=== PATIENT | male | born 1960 | race Caucasian/White ===

== ENCOUNTER 2018-04-09 21:01 | Inpatient (IN) | payer OTHER ==
--- NOTE | 2018-04-09 21:43 | EDPHYS ---
Physician Documentation [facility] Name: Olga Gates Age: 57 yrs Sex: Male : 1960 Arrival Date: 04/09/2018 Time: 21:02 Bed 16 Private MD: ED Physician Bennie Wu HPI: 04/09 21:27 This 57 yrs old Male presents to ER via Ambulatory with complaints of Chest michael Pain, High Blood Pressure. 21:27 This 57 yrs old Male presents to ER via Ambulatory with complaints of Chest michael Pain, High Blood Pressure. 21:27 This 57 yrs old Male presents to ER via Ambulatory with complaints of Chest michael Pain, High Blood Pressure. 21:27 Onset: 1 day(s) ago. michael Historical: - Allergies: 21:20 Sulfa (Sulfonamide Antibiotics); bb 21:23 PENICILLINS; bb - Home Meds: 21:23 losartan oral oral [Active]; Metformin Oral [Active]; Glipizide Oral [Active]; bb Omeprazole Oral [Active]; Hydrochlorothiazide Oral [Active]; aspirin 81 mg Oral chew 1 tab once daily [Active]; atorvastatin oral oral [Active]; - PMHx: 21:23 Diabetes - NIDDM; Hypertension; GERD; High Cholesterol; bb - Immunization history:: Adult Immunizations unknown. - Ebola Screening: : No symptoms or risks identified at this time. - Social history:: Smoking status: Patient uses tobacco products, smokes one-half pack cigarettes per day, Patient/guardian denies using alcohol, street drugs. ROS: 21:41 Constitutional: Negative for fever, chills, and weight loss, Eyes: Negative for injury, michael pain, redness, and discharge, ENT: Negative for injury, pain, and discharge, Neck: Negative for injury, pain, and swelling, Respiratory: Negative for shortness of breath, cough, wheezing, and pleuritic chest pain, Abdomen/GI: Negative for abdominal pain, nausea, vomiting, diarrhea, and constipation, Back: Negative for injury and pain, : Negative for injury, bleeding, discharge, and swelling, MS/Extremity: Negative for injury and deformity, Skin: Negative for injury, rash, and discoloration, Neuro: Negative for headache, weakness, numbness, tingling, and seizure, Psych: Negative for depression, anxiety, suicide ideation, homicidal ideation, and hallucinations, Allergy/Immunology: Negative for hives, rash, and allergies, Endocrine: Negative for neck swelling, polydipsia, polyuria, polyphagia, and marked weight changes, Hematologic/Lymphatic: Negative for swollen nodes, abnormal bleeding, and unusual bruising. 21:41 Cardiovascular: Positive for chest pain. Exam: 21:41 Constitutional: This is a well developed, well nourished patient who is awake, alert, michael and in no acute distress. Head/Face: Normocephalic, atraumatic. Eyes: Pupils equal round and reactive to light, extra-ocular motions intact. Lids and lashes normal. Conjunctiva and sclera are non-icteric and not injected. Cornea within normal limits. Periorbital areas with no swelling, redness, or edema. ENT: Nares patent. No nasal discharge, no septal abnormalities noted. Tympanic membranes are normal and external auditory canals are clear. Oropharynx with no redness, swelling, or masses, exudates, or evidence of obstruction, uvula midline. Mucous membranes moist. Neck: Trachea midline, no thyromegaly or masses palpated, and no cervical lymphadenopathy. Supple, full range of motion without nuchal rigidity, or vertebral point tenderness. No Meningismus. Chest/axilla: Normal chest wall appearance and motion. Nontender with no deformity. No lesions are appreciated. Cardiovascular: Regular rate and rhythm with a normal S1 and S2. No gallops, murmurs, or rubs. Normal PMI, no JVD. No pulse deficits. Respiratory: Lungs have equal breath sounds bilaterally, clear to auscultation and percussion. No rales, rhonchi or wheezes noted. No increased work of breathing, no retractions or nasal flaring. Abdomen/GI: Soft, non-tender, with normal bowel sounds. No distension or tympany. No guarding or rebound. No evidence of tenderness throughout. Back: No spinal tenderness. No costovertebral tenderness. Full range of motion. Male : Normal genitalia with no discharge or lesions. Skin: Warm, dry with normal turgor. Normal color with no rashes, no lesions, and no evidence of cellulitis. MS/ Extremity: Pulses equal, no cyanosis. Neurovascular intact. Full, normal range of motion. Neuro: Awake and alert, GCS 15, oriented to person, place, time, and situation. Cranial nerves II-XII grossly intact. Motor strength 5/5 in all extremities. Sensory grossly intact. Cerebellar exam normal. Normal gait. Psych: Awake, alert, with orientation to person, place and time. Behavior, mood, and affect are within normal limits. Vital Signs: 21:23 BP 201 / 111; Pulse 90; Resp 18 S; Temp 98.6(O); Pulse Ox 98% on R/A; Weight 99.79 kg bb (R); Height 5 ft. 10 in. (177.80 cm) (R); Pain 8/10; 22:22 BP 170 / 101; Pulse 83; Resp 18; Pulse Ox 98% on R/A; Pain 8/10; mg2 22:49 BP 169 / 79; Pulse 82; Resp 18; Pulse Ox 98% on R/A; Pain 4/10; mg2 23:20 BP 133 / 70; Pulse 78; Resp 18; Pulse Ox 100% on R/A; Pain 0/10; mg2 06 00:45 BP 128 / 81; Pulse 78; Resp 18; Pulse Ox 100% on R/A; Pain 0/10; mg2 04/09 21:23 Body Mass Index 31.57 (99.79 kg, 177.80 cm) bb MDM: 04/09 21:21 Patient medically screened. [facility] 21:42 Data reviewed: vital signs, nurses notes, lab test result(s), EKG, radiologic studies, [facility] CT scan, plain films. 04/09 21:25 Order name: Basic Metabolic Panel; Complete Time: 23:17 [facility] 04/09 21:25 Order name: BNP; Complete Time: 23:17 [facility] 04/09 21:25 Order name: CBC with Diff; Complete Time: 23:17 [facility] 04/09 21:25 Order name: Ckmb; Complete Time: 23:17 [facility] 04/09 21:25 Order name: CPK; Complete Time: 23:17 [facility] 04/09 21:25 Order name: LFT's; Complete Time: 23:17 [facility] 04/09 21:25 Order name: Magnesium; Complete Time: 23:17 [facility] 04/09 21:25 Order name: PT-INR; Complete Time: 23:17 [facility] 04/09 21:25 Order name: Ptt, Activated; Complete Time: 23:17 [facility] 04/09 21:25 Order name: Troponin (emerg Dept Use Only); Complete Time: 23:17 [facility] 04/09 21:25 Order name: Lipase; Complete Time: 23:17 [facility] 04/09 21:25 Order name: Urine Culture [facility] 04/09 22:13 Order name: Urine Dipstick--Ancillary (enter results) 04/09 23:02 Order name: Urine Dipstick-Ancillary; Complete Time: 23:17 [facility] 04/09 21:25 Order name: XRAY Chest (1 view) [facility] 04/09 21:25 Order name: EKG; Complete Time: 21:26 [facility] 04/09 21:39 Order name: CT Aorta for Dissection [facility] 04/09 21:47 Order name: CONS Physician Consult [facility] 04/09 21:48 Order name: Echo with Doppler [facility] 04/09 21:25 Order name: Cardiac monitoring; Complete Time: 21:50 [facility] 04/09 21:25 Order name: EKG - Nurse/Tech; Complete Time: 21:26 [facility] 04/09 21:25 Order name: IV Saline Lock; Complete Time: 21:50 [facility] 04/09 21:25 Order name: Labs collected and sent; Complete Time: 21:50 [facility] 04/09 21:25 Order name: O2 Per Protocol; Complete Time: 21:26 [facility] 04/09 21:25 Order name: O2 Sat Monitoring; Complete Time: 21:26 [facility] 04/09 21:25 Order name: Urine Dipstick-Ancillary (obtain specimen); Complete Time: 22:09 [facility] Administered Medications: 22:15 Drug: Zofran 4 mg Route: IVP; Site: left forearm; mg2 23:10 Follow up: Response: No adverse reaction; Nausea is decreased mg2 22:16 Drug: hydrALAZINE 10 mg Route: IV; Rate: per protocol; Site: left forearm; mg2 23:08 Follow up: Response: No adverse reaction; Blood pressure is lowered mg2 22:16 Drug: hydrALAZINE 10 mg Route: PO; mg2 23:08 Follow up: Response: No adverse reaction; Blood pressure is lowered mg2 22:16 Drug: morphine 2 mg Route: IVP; Site: left forearm; mg2 23:10 Follow up: Response: No adverse reaction; Pain is decreased mg2 22:17 Drug: NS 0.9% 1000 ml Route: IV; Rate: 125 ml/hr; Site: left forearm; mg2 06/02 01:05 Follow up: IV Status: Infusion continued upon admission mg2 04/09 22:17 Drug: Aspirin 162 mg Route: PO; mg2 23:11 Follow up: Response: No adverse reaction; Pain is decreased mg2 22:17 Drug: Lopressor (metoprolol TARTRATE) 50 mg Route: PO; mg2 23:09 Follow up: Response: No adverse reaction; Blood pressure is lowered mg2 22:48 Drug: morphine 2 mg Route: IVP; Site: left hand; mg2 23:10 Follow up: Response: No adverse reaction; Pain is decreased mg2 23:52 Drug: Potassium Effervescent Tablet 25 mEq Route: PO; mg2 02 01:01 Follow up: Response: No adverse reaction mg2 04/09 23:52 Drug: Magnesium Sulfate 1 grams Route: IVPB; Infused Over: 1 hrs; Site: left hand; mg2 04/10 01:00 Follow up: Response: No adverse reaction; IV Status: Completed infusion mg2 00:18 Drug: Lovenox 1 mg/kg Route: Sub-Q; Site: left lower abdomen; mg2 01:01 Follow up: Response: No adverse reaction mg2 00:18 Drug: Lovenox 1 mg/kg Route: Sub-Q; Site: left lower abdomen; mg2 Disposition: 04/09/18 21:43 Hospitalization ordered by Pratibha Zimmer for Observation. Preliminary diagnosis are Chest pain, unspecified, Essential (primary) hypertension, Type 2 diabetes mellitus, Tobacco abuse counseling, Tobacco use, Hypomagnesemia, Hypokalemia. - Bed requested for Telemetry/MedSurg (observation). - Status is Observation. mg2 - Condition is Stable. - Problem is new. - Symptoms have improved. UTI on Admission? No Signatures: Dispatcher [employer] EDSapna Chilel RN RN kl Anderson, Corey, MD MD cha Ballard, Brenda, RN RN bb Gardose, Michele, RN RN mg2 Corrections: (The following items were deleted from the chart) 04/09 21:23 21:20 Allergies: PENICILLINS; chris perez 23:18 21:43 Hospitalization Ordered by Pratibha Zimmer MD for Observation. Preliminary michael diagnosis is Chest pain, unspecified; Essential (primary) hypertension; Type 2 diabetes mellitus; Tobacco abuse counseling; Tobacco use. Bed requested for Telemetry/MedSurg (observation). Status is Observation. Condition is Stable. Problem is new. Symptoms have improved. UTI on Admission? No. michael 04/10 00:31 04/09 23:18 04/09/2018 21:43 Hospitalization Ordered by Pratibha Zimmer MD for kl Observation. Preliminary diagnosis is Chest pain, unspecified; Essential (primary) hypertension; Type 2 diabetes mellitus; Tobacco abuse counseling; Tobacco use; Hypomagnesemia; Hypokalemia. Bed requested for Telemetry/MedSurg (observation). Status is Observation. Condition is Stable. Problem is new. Symptoms have improved. UTI on Admission? No. michael 04/10 01:06 00:31 04/09/2018 21:43 Hospitalization Ordered by Pratibha Zimmer MD for Observation. mg2 Preliminary diagnosis is Chest pain, unspecified; Essential (primary) hypertension; Type 2 diabetes mellitus; Tobacco abuse counseling; Tobacco use; Hypomagnesemia; Hypokalemia. Bed requested for Telemetry/MedSurg (observation). Status is Observation. Condition is Stable. Problem is new. Symptoms have improved. UTI on Admission? No. kl
--- NOTE | 2018-04-09 21:43 | ER ---
Nurse's Notes [facility] Name: Olga Gates Age: 57 yrs Sex: Male : 1960 Arrival Date: 04/09/2018 Time: 21:02 Bed 16 Private MD: Diagnosis: Chest pain, unspecified;Essential (primary) hypertension;Type 2 diabetes mellitus;Tobacco abuse counseling;Tobacco use;Hypomagnesemia;Hypokalemia Presentation: 04/09 21:18 Presenting complaint: Patient states: pt states he is having chest pain 10 with bb sudden onset tonight denies radiation pt BP at home was 200/121 and he took his losartan and aspirin. Transition of care: patient was not received from another setting of care. Onset of symptoms was April 09, 2018. Risk Assessment: Do you want to hurt yourself or someone else? Patient reports no desire to harm self or others. Initial Sepsis Screen: Does the patient meet any 2 criteria? No. Patient's initial sepsis screen is negative. Does the patient have a suspected source of infection? No. Patient's initial sepsis screen is negative. Care prior to arrival: None. 21:18 Method Of Arrival: Ambulatory bb 21:18 Acuity: LUCAS 2 bb Historical: - Allergies: 21:20 Sulfa (Sulfonamide Antibiotics); bb 21:23 PENICILLINS; bb - Home Meds: 21:23 losartan oral oral [Active]; Metformin Oral [Active]; Glipizide Oral [Active]; bb Omeprazole Oral [Active]; Hydrochlorothiazide Oral [Active]; aspirin 81 mg Oral chew 1 tab once daily [Active]; atorvastatin oral oral [Active]; - PMHx: 21:23 Diabetes - NIDDM; Hypertension; GERD; High Cholesterol; bb - Immunization history:: Adult Immunizations unknown. - Ebola Screening: : No symptoms or risks identified at this time. - Social history:: Smoking status: Patient uses tobacco products, smokes one-half pack cigarettes per day, Patient/guardian denies using alcohol, street drugs. Screenin:18 Abuse screen: Denies threats or abuse. Denies injuries from another. Nutritional mg2 screening: No deficits noted. Tuberculosis screening: No symptoms or risk factors identified. Fall Risk IV access (20 points). Assessment: 22:01 General: Appears in no apparent distress. comfortable, Behavior is calm, cooperative. mg2 Pain: Pain: Complains of pain in chest Pain radiates to both arms Pain currently is 8 out of 10 on a pain scale. Quality of pain is described as aching, Pain began gradually, 1 and 1/2 hour ago Is intermittent, Aggravated by increased activity, heat. 22:19 Neuro: Level of Consciousness is awake, alert, Oriented to person, place, time, mg2 situation. Cardiovascular: Capillary refill < 3 seconds Patient's skin is warm and dry. Chest pain is described as Pain is 8 out of 10 on a pain scale. Respiratory: Airway is patent Respiratory effort is even, unlabored, Respiratory pattern is regular, symmetrical. GI: No signs and/or symptoms were reported involving the gastrointestinal system. : No signs and/or symptoms were reported regarding the genitourinary system. EENT: No signs and/or symptoms were reported regarding the EENT system. Derm: Skin is intact, Skin is pink, warm \T\ dry. normal, Rash noted that is red. Musculoskeletal: No signs and/or symptoms reported regarding the musculoskeletal system. 22:26 Reassessment: dr. ram came and examined the patient. mg2 23:05 Reassessment: patient is in CT scan now. mg2 Vital Signs: 21:23 BP 201 / 111; Pulse 90; Resp 18 S; Temp 98.6(O); Pulse Ox 98% on R/A; Weight 99.79 kg bb (R); Height 5 ft. 10 in. (177.80 cm) (R); Pain 8/10; 22:22 BP 170 / 101; Pulse 83; Resp 18; Pulse Ox 98% on R/A; Pain 8/10; mg2 22:49 BP 169 / 79; Pulse 82; Resp 18; Pulse Ox 98% on R/A; Pain 4/10; mg2 23:20 BP 133 / 70; Pulse 78; Resp 18; Pulse Ox 100% on R/A; Pain 0/10; mg2 04/10 00:45 BP 128 / 81; Pulse 78; Resp 18; Pulse Ox 100% on R/A; Pain 0/10; mg2 04/09 21:23 Body Mass Index 31.57 (99.79 kg, 177.80 cm) bb ED Course: 04/09 21:02 Patient arrived in ED. al2 21:20 Triage completed. bb 21:21 Bennie Wu MD is Attending Physician. michael 21:21 Roxana Funk, SHAKILA is Primary Nurse. bb 21:23 Arm band placed on. EKG completed in triage. Results shown to MD. bb 21:26 EKG done, by chemical plant technical director. reviewed by Bennie Wu MD. oe 21:42 Pratibha Zimmer MD is Hospitalizing Provider. michael 21:47 XRAY Chest (1 view) In Process Unspecified. EDMS 22:18 Inserted saline lock: 20 gauge in left hand, using aseptic technique. Blood collected. mg2 22:22 Patient has correct armband on for positive identification. Placed in gown. Bed in low mg2 position. Side rails up X 1. personnel monitor on. Pulse ox on. NIBP on. Door closed. Warm blanket given. 22:25 Patient maintains SpO2 saturation greater than 95% on room air. mg2 22:49 Radiology exam delayed due to IV insertion attempt and/or patient not having kc3 appropriate IV at this time. 23:[address] via wheelchair. kw1 02 01:03 No provider procedures requiring assistance completed. Patient admitted, IV remains in mg2 place. intact. Administered Medications: 04/09 22:15 Drug: Zofran 4 mg Route: IVP; Site: left forearm; mg2 23:10 Follow up: Response: No adverse reaction; Nausea is decreased mg2 22:16 Drug: hydrALAZINE 10 mg Route: IV; Rate: per protocol; Site: left forearm; mg2 23:08 Follow up: Response: No adverse reaction; Blood pressure is lowered mg2 22:16 Drug: hydrALAZINE 10 mg Route: PO; mg2 23:08 Follow up: Response: No adverse reaction; Blood pressure is lowered mg2 22:16 Drug: morphine 2 mg Route: IVP; Site: left forearm; mg2 23:10 Follow up: Response: No adverse reaction; Pain is decreased mg2 22:17 Drug: NS 0.9% 1000 ml Route: IV; Rate: 125 ml/hr; Site: left forearm; mg2 02 01:05 Follow up: IV Status: Infusion continued upon admission mg2 04/09 22:17 Drug: Aspirin 162 mg Route: PO; mg2 23:11 Follow up: Response: No adverse reaction; Pain is decreased mg2 22:17 Drug: Lopressor (metoprolol TARTRATE) 50 mg Route: PO; mg2 23:09 Follow up: Response: No adverse reaction; Blood pressure is lowered mg2 22:48 Drug: morphine 2 mg Route: IVP; Site: left hand; mg2 23:10 Follow up: Response: No adverse reaction; Pain is decreased mg2 23:52 Drug: Potassium Effervescent Tablet 25 mEq Route: PO; mg2 04/10 01:01 Follow up: Response: No adverse reaction mg2 04/09 23:52 Drug: Magnesium Sulfate 1 grams Route: IVPB; Infused Over: 1 hrs; Site: left hand; mg2 04/10 01:00 Follow up: Response: No adverse reaction; IV Status: Completed infusion mg2 00:18 Drug: Lovenox 1 mg/kg Route: Sub-Q; Site: left lower abdomen; mg2 01:01 Follow up: Response: No adverse reaction mg2 00:18 Drug: Lovenox 1 mg/kg Route: Sub-Q; Site: left lower abdomen; mg2 Outcome: 04/09 21:43 Decision to Hospitalize by Provider. michael 04/10 01:02 Admitted to Med/surg accompanied by tech, via wheelchair, room 216, with chart, Report mg2 called to Nurse Medina Condition: stable Instructed on the need for admit, Demonstrated understanding of need for admission 01:06 Patient left the ED. mg2 Signatures: Dispatcher [employer] EDBennie Combs MD MD cha Ballard, Brenda, RN RN Kun Bearden Kimberly kw1 Anum Diaz2 Winsome Bean kc3 Meek Sapp, SHAKILA RN mg2 Corrections: (The following items were deleted from the chart) 04/09 21:23 21:20 Allergies: PENICILLINS; chris perez 22:22 22:01 Pain: mg2 mg2 04/10 01:04 04/09 22:18 Inserted saline lock: 20 gauge in left forearm, using aseptic technique. mg2 Blood collected. mg2 04/10 01:04 04/09 22:18 Inserted saline lock: 20 gauge in left forearm, using aseptic technique. mg2 hand, using aseptic technique. Blood collected. mg2
[2018-04-09] MEDS ORDERED: METOPROLOL TAR 50 MG TAB ONE (21:47)
[2018-04-09] MEDS ORDERED: NA CHLORIDE 0.9% 1,000 ML ONE (21:47)
[2018-04-09] MEDS ORDERED: ASPIRIN EC 81 MG TAB PO ONE (21:47)
[2018-04-09] MEDS ORDERED: HYDRALAZINE HCL 10 MG TABLET ONE (21:55)
[2018-04-09] MEDS ORDERED: HYDRALAZINE HCL 20 MG/ML VIAL ONE (21:55)
[2018-04-09] MEDS ORDERED: ENOXAPARIN 100 MG/ML SYR SQ ONE (21:55)
[2018-04-09] MEDS ORDERED: MORPHINE 4 MG/ML SYR ONE (21:55)
[2018-04-09] MEDS ORDERED: ONDANSETRON 4 MG/2 ML VIAL ONE (21:55)
[2018-04-09 22:12] LABS: Absolute Lymphocytes (CBC) 1.5 K/uL (0.7-4.9); Absolute Monocytes 0.7 K/uL (0.1-1.3); Absolute Neutrophil 3.7 K/uL (1.8-8.0); Basophils % 0.8 % (0-1.3); Eosinophils % 8.4 % (0-4.4); Lymphocytes % 23.4 % (15.3-44.8); MCH 30.7 pg (27.0-35.0); MCV 89.6 fL (80-100); MPV 9.9 fL (7.6-11.3); RBC Red Blood Cell Count 4.69 M/uL (4.33-5.43)
[2018-04-09 22:15] LABS: Protime INR 1.01
[2018-04-09 22:23] LABS: Potassium 3.4 mEq/L (3.6-5.0)
[2018-04-09 22:29] LABS: Bilirubin Direct 0.1 mg/dL (0-0.2); Bilirubin Total 0.5 mg/dL (0.3-1.2); Magnesium 1.7 mg/dL (1.8-2.5); Protein, Total 7.2 g/dL (6.0-8.3)
[2018-04-09 22:31] LABS: CKMB Creatine Kinase MB 2.6 ng/ml (0.3-4.0)
[2018-04-09] MEDS ORDERED: HYDRALAZINE HCL 20 MG/ML VIAL IV PRN (22:31)
--- NOTE | 2018-04-09 22:38 | P.HP ---
Certification for Inpatient Patient admitted to: Observation With expected LOS: <2 Midnights Practitioner: I am a practitioner with admitting privileges, knowledge of patient current condition, hospital course, and medical plan of care. Services: Services provided to patient in accordance with Admission requirements found in Title 42 Section 412.3 of the Code of Federal Regulations Patient History Date of Service: 04/09/18 Reason for admission: chest pain, HTN History of Present Illness: Mr Gates is a 57 years old male with history of DM II, HTN, GERD, dyslipidemia, who came to ED complaining of chest pain and HTN. 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 The pain is retrosteranal, radiated to bilateral shoulder and back , pressure like, 8/10 of intensity. He denied any nausea, SOB or diaphoretic episode. He has had this kind of pain in the past but less intense. His blood pressure was elevated at home as well, about 184/111. He has noticed that every time he has chest pain, blood pressure was elevated. In ED is initial BP was 201 /111. Chest pain decreased after been treated with morphine. - Past Medical/Surgical History -: HTN -: DM II -: GERD -: Dyslipidemia Past Surgical History: Reviewed- Non-Contributory - Family History Family History: Reviewed- Non-Contributory - Social History Smoking Status: Current every day smoker Counseled patient to stop smoking for: less than 10 minutes Alcohol use: Yes CD- Drugs: No Place of Residence: Home Review of Systems 10-point ROS is otherwise unremarkable Physical Examination - Physical Exam General: Alert, In no apparent distress HEENT: Atraumatic, PERRLA, Mucous membr. moist/pink, EOMI, Sclerae nonicteric Neck: Supple, 2+ carotid pulse no bruit, No LAD, Without JVD or thyroid abnormality Respiratory: Clear to auscultation bilaterally, Normal air movement Cardiovascular: Regular rate/rhythm, Normal S1 S2 Gastrointestinal: Normal bowel sounds, No tenderness Musculoskeletal: No tenderness Integumentary: No rashes Neurological: Normal speech, Normal strength at 5/5 x4 extr, Normal tone, Normal affect Lymphatics: No axilla or inguinal lymphadenopathy Assessment and Plan - Problems (Diagnosis) (1) Chest pain Current Visit: Yes Status: Acute Qualifiers: Chest pain type: precordial pain Qualified Code(s): R07.2 - Precordial pain (2) HTN (hypertension) Current Visit: Yes Status: Acute Qualifiers: Hypertension type: essential hypertension Qualified Code(s): I10 - Essential (primary) hypertension (3) Diabetes mellitus Current Visit: Yes Status: Acute Qualifiers: Diabetes mellitus type: type 2 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 Trop I negative. Will order serial cardiac enzymes, EKG, ASA, beta mary ann. Consult cardiology team. CTA chest pending. #2 HTN: Will start Metoprolol, give Hydralazyne PRN, will resume home medication once verified. #3 DM II: check HgbA1c, order SSI. - Advance Directives Does patient have a Living Will: No Does patient have a Durable POA for Healthcare: No - Code Status/Comfort Care Code Status Assessed: Yes Code Status: Full Code
[2018-04-09 23:01] LABS: Urine Blood 1+ (NEG); Urine Glucose TRACE (NEG); Urine Protein 3+ (NEG)
[2018-04-09] MEDS ORDERED: POTASSIUM 25 MEQ EFFERV TAB ONE (23:42)
[2018-04-09] MEDS ORDERED: MAGNESIUM SULFATE 1 gm IVPB 1 GM/100 ML BAG IV ONE (23:42)
[2018-04-10] MEDS ORDERED: ONDANSETRON 4 MG/2 ML VIAL IV PRN (01:11)
[2018-04-10] MEDS ORDERED: ACETAMINOPHEN 500 MG TAB PO PRN (01:11)
[2018-04-10 06:07] LABS: Absolute Monocytes 0.8 K/uL (0.1-1.3); Absolute Neutrophil 3.7 K/uL (1.8-8.0); Basophils % 0.8 % (0-1.3); Eosinophils % 8.9 % (0-4.4); Hematocrit 43.2 % (39.6-49.0); Lymphocytes % 27.4 % (15.3-44.8); MCH 30.2 pg (27.0-35.0); MCV 90.8 fL (80-100); MPV 9.4 fL (7.6-11.3); Monocytes % 10.7 % (3.3-12.3); RBC Red Blood Cell Count 4.76 M/uL (4.33-5.43)
[2018-04-10 06:21] LABS: Potassium 4.1 mEq/L (3.6-5.0)
--- NOTE | 2018-04-10 06:47 | EKG ---
Test Date: 2018-04-09 Test Time: 21:09:26 Client Relations Representative: CARITO MEASUREMENT RESULTS: Intervals: Rate: 87 WI: 134 QRSD: 72 QT: 354 QTc: 425 [place]: P: WI: 134 QRS: 38 T: 45 INTERPRETIVE STATEMENTS: Normal sinus rhythm Normal ECG No previous ECG available for comparison Electronically Signed On 04-10-18 06:46:27 CDT by Wai Nathan
[2018-04-10] MEDS: METOPROLOL TAR 25 MG TAB PO SCH ×2 (06:50→17:11)
[2018-04-10] MEDS: INSULIN -REGULAR HUMAN 50 UNIT/0.5 ML ML SQ SCH ×4 (07:30→21:03)
[2018-04-10 07:36] LABS: Urine Appearance CLEAR; Urine Bilirubin NEGATIVE (NEG); Urine Blood NEGATIVE (NEG); Urine Color YELLOW; Urine Glucose NEGATIVE (NEG); Urine Protein 1+ (NEG); Urine Specific Gravity >=1.030 (1.005-1.030); Urine Urobilinogen 0.2 mg/dL (0.2-1.0); Urine pH 6.5 (5.0-7.0)
[2018-04-10 07:40] LABS: Urine Microscopic Reflex ORDER UMIC
[2018-04-10 07:46] LABS: Urine RBC <5 /HPF (NONE SEEN)
[2018-04-10 07:47] LABS: Urine Bacteria <20 /HPF (NONE SEEN); Urine Culture Reflex Order NOT NEEDED; Urine Mucus 1+ /HPF (NONE SEEN)
[2018-04-10] MEDS ORDERED: ENOXAPARIN 40 MG/0.4 ML SQ SCH (09:00)
[2018-04-10] MEDS: ENOXAPARIN 100 MG/ML SYR SQ SCH ×2 (09:07→21:04)
--- NOTE | 2018-04-10 09:07 | RAD REPORT ---
EXAM DESCRIPTION: CT - Angio Aorta For Dissection - 04/10/2018 3:21 am CLINICAL HISTORY: Sudden onset of chest pain, hypertension A preliminary written report was provided at the time of the study, and the report was reviewed prio r to final dictation. COMPARISON: Chest films same date TECHNIQUE: Dynamically enhanced 3 mm thick images of the chest, abdomen, and upper pelvis were obtai alex during administration of approximately 150mL Isovue 370 IV contrast. Sagittal and coronal reconst ruction images were generated and reviewed. Exam utilizes a protocol to evaluate entire course of the aorta. All CT scans are performed using dose optimization technique as appropriate and may include automated exposure control or mA/KV adjustment according to patient size. FINDINGS: Aorta is normal in diameter with no dissection or other acute aortic findings. Reconstruct ion images show no significant findings. Pulmonary arteries are normal as well. No cardiomegaly, pericardial thickening or pericardial effusio n. No infiltrate or suspicious mass in the lung parenchyma. The patient has multiple noncalcified pulmon rip nodules. Largest is 5-6 mm with most well under 5 mm in size. A few small nonspecific mediastinal lymph nodes are present. No pleural thickening, pleural effusion or pneumothorax. No chest wall mass or abnormal axillary lymphadenopathy. Celiac, SMA and renal arteries show no suspicious findings. Liver shows borderline to mild fatty infi ltration. No focal liver lesion or other solid abdominal visceral lesion seen. Liver assessment is li mited somewhat on aortic dissection protocol. No mass or abnormal lymphadenopathy. No free air, free fluid or inflammatory stranding. No urinary bladder abnormality. Disc and bony degenerative changes are present. Prominent for age degenerative change is present invo lving 7 consecutive disc levels in the mid thoracic spine as well as the L3-4 and L4-5 disc levels. N o pathologic bone process. IMPRESSION: Negative CT scan of the aorta. Multiple less than 6 mm noncalcified pulmonary nodules in the lower lung walsh. Mark 2017 crit eria would be no follow-up for low risk patient. High risk patient follow-up at 12 months is optional . Borderline to mild fatty infiltration of the liver not fully assessed on aorta protocol CT imaging.
[2018-04-10] MEDS: ASPIRIN EC 81 MG TAB PO SCH (09:08)
--- NOTE | 2018-04-10 10:12 | P.PN ---
Subjective Date of Service: 04/10/18 Chief Complaint: chest pain, HTN pt seen and examined at bedside. Chart reviewed. Case DW with cardiology. Troponin I elevated. Pt is scheduled for Heart Cath on Thursday. Currently denies Chest pain and no other complains to offer. Review of Systems General: As per HPI Physical Examination - Vital Signs Temperature: 97.4 F Blood Pressure: 137/72 Pulse: 70 Respirations: 18 Pulse Ox (%): 96 - Physical Exam General: Alert, In no apparent distress HEENT: Atraumatic, PERRLA, EOMI Neck: Supple, JVD not distended Respiratory: Clear to auscultation bilaterally, Normal air movement Cardiovascular: Regular rate/rhythm, Normal S1 S2 Gastrointestinal: Normal bowel sounds, No tenderness Musculoskeletal: No tenderness Integumentary: No rashes Neurological: Normal speech, Normal tone, Normal affect Lymphatics: No axilla or inguinal lymphadenopathy - Studies Medications List Reviewed: Yes Assessment & Plan - Problems (Diagnosis) (1) NSTEMI (non-ST elevated myocardial infarction) Current Visit: Yes Status: Acute Plan: EKG with Nonspecific changes with elevated troponin I -Cardiology consulted. 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 manager use Diabetes mellitus complication status: with neurologic complications Diabetes mellitus complication detail: with polyneuropathy Qualified Code(s): E11.42 - Type 2 diabetes mellitus with diabetic polyneuropathy (3) Dyslipidemia Current Visit: Yes Status: Chronic Plan: On Statin Now (4) HTN (hypertension) Current Visit: Yes Status: Chronic Plan: On BB for now Qualifiers: Hypertension type: essential hypertension Qualified Code(s): I10 - Essential (primary) hypertension Discharge Plan: Home Plan to discharge in: 48 Hours - Code Status/Comfort Care Code Status Assessed: Yes Critical Care: No
--- NOTE | 2018-04-10 10:26 | RAD REPORT ---
EXAM DESCRIPTION: RAD - Chest Single View - 04/09/2018 9:47 pm CLINICAL HISTORY: Chest pain COMPARISON: None. TECHNIQUE: AP portable chest image was obtained 2142 hours . FINDINGS: Lungs are clear. Heart and vasculature are normal. No measurable pleural effusion and no p neumothorax. No gross bony abnormality seen. No acute aortic findings suspected. IMPRESSION: No acute cardiopulmonary process.
--- NOTE | 2018-04-10 11:51 | CON ---
Identification: Mr. Gates is 57. Chief Complaint: Chest pain. Reason For Consult: Non-ST elevation [place]. History Of Present Illness: Mr. Gates has never had heart disease before. He sees a physician and ta kes medicines for diabetes, high blood pressure, and dyslipidemia. He takes an aspirin. He is aller gic to penicillin and sulfa, although he does not remember ever actually having those, that was told him by his parents. He is a regular smoker, has never really considered trying to quit before. No h istory of myocardial infarction, stroke, or any vascular disease or vascular interventions. Outpatient Medications: Losartan, metformin glipizide, omeprazole, hydrochlorothiazide, aspirin, and atorvastatin. Many of these we do not have the dose on. Social History: He smokes a pack a day or more. No illegal drugs. Alcohol, moderate in use, perhap s more. Physical Examination: Vital Signs: 5 feet 10 inches, 220 pounds. HEENT: Normal. There is a mild rhinophyma. Lungs: Clear. Neck: Carotids, no bruit. Heart: S4 gallop. Abdomen: Soft. Extremities: normal distal pulses. No cyanosis, clubbing, or edema. Laboratory Data: EKG is normal. Troponins are abnormal. The initial troponin is less than 0.03, se cond one 1.5. His triglycerides were 385, total cholesterol 156, LDL 48, and HDL 31. Impression: The patient had a non-ST elevation non-Q-wave myocardial infarction. Completely pain-fr ee since he got to the ER and received nitroglycerin. The recommendation is for him to have a cardia c cath. We will do it the next time the laboratory coordinator is open, which would be April 12. I have discussed the procedure, its potential benefits, indications, and risks. The patient seems to understand and agrees to proceed and will be on aspirin, Lovenox between now and when we do the heart cath. I think it is gamez for us not to give him Plavix or Effient between now and the cath, so that if the patient needs bypass surgery, he will not have to wait a week for Plavix to wear off. Thank you very much for your kind referral of Mr. Gates. I will follow him with you. CASI Voice ID: [id number] Report ID: [id number]
[2018-04-10] MEDS ORDERED: D50W 25 GM/50 ML SYRINGE IV PRN (14:03)
[2018-04-10] MEDS ORDERED: GLUCAGON 1 MG/VIAL IM PRN (14:03)
[2018-04-10] MEDS: ATORVASTATIN 20 MG TAB PO SCH (21:04)
[2018-04-11 04:46] VITALS: BMI 31.6
[2018-04-11] MEDS: METOPROLOL TAR 25 MG TAB PO SCH ×2 (05:10→17:20)
[2018-04-11] MEDS: INSULIN -REGULAR HUMAN 50 UNIT/0.5 ML ML SQ SCH ×4 (07:30→21:06)
[2018-04-11] MEDS: ENOXAPARIN 100 MG/ML SYR SQ SCH (09:00)
[2018-04-11] MEDS: ASPIRIN EC 81 MG TAB PO SCH (09:00)
[2018-04-11] MEDS ORDERED: NITROGLYCERIN 0.4 MG/TAB SL PRN (12:02)
[2018-04-11] MEDS: GABAPENTIN 300 MG CAP PO SCH ×2 (12:56→21:06)
[2018-04-11] MEDS: GEMFIBROZIL 600 MG TAB PO SCH ×2 (12:57→21:06)
[2018-04-11] MEDS ORDERED: DIPHENHYDRAMINE 25 MG TAB/CAP PO ONE (13:00)
[2018-04-11] MEDS ORDERED: HOME MED 1 EA UNK (Gabapentin [Gabapentin] 600 MG) PO SCH (14:00)
--- NOTE | 2018-04-11 14:05 | P.PN ---
Subjective Date of Service: 04/11/18 Chief Complaint: chest pain, HTN pt seen and examined at bedside. Chart reviewed. Case DW with cardiology. Troponin I elevated. Pt is scheduled for Heart Cath on Thursday. Currently denies Chest pain and no other complains to offer. Review of Systems General: As per HPI Physical Examination - Vital Signs Temperature: 98.3 F Blood Pressure: 126/83 Pulse: 60 Respirations: 18 Pulse Ox (%): 96 - Physical Exam General: Alert, In no apparent distress HEENT: Atraumatic, PERRLA, EOMI Neck: Supple, JVD not distended Respiratory: Clear to auscultation bilaterally, Normal air movement Cardiovascular: Regular rate/rhythm, Normal S1 S2 Gastrointestinal: Normal bowel sounds, No tenderness Musculoskeletal: No tenderness Integumentary: No rashes Neurological: Normal speech, Normal tone, Normal affect Lymphatics: No axilla or inguinal lymphadenopathy - Studies Medications List Reviewed: Yes Assessment & Plan - Problems (Diagnosis) (1) NSTEMI (non-ST elevated myocardial infarction) Current Visit: Yes Status: Acute Plan: EKG with Nonspecific changes with elevated troponin I -Cardiology consulted. 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
--- NOTE | 2018-04-11 15:44 | PN ---
Mr. Gates is a patient with unstable angina. We want to do a cardiac cath tomorrow. The patient seem s to understand the procedure, its potential benefits, indications, risks, and agrees to proceed. Hi s diagnosis is non-ST elevation [place] or unstable angina. BARON/FRIEDA Voice ID: [id number] Report ID: [id number]
[2018-04-11] MEDS: ATORVASTATIN 20 MG TAB PO SCH (21:06)
[2018-04-12] MEDS: PANTOPRAZOLE 40MG TABLET PO SCH (05:19)
[2018-04-12] MEDS: METOPROLOL TAR 25 MG TAB PO SCH ×2 (05:19→17:21)
[2018-04-12] MEDS: INSULIN -REGULAR HUMAN 50 UNIT/0.5 ML ML SQ SCH ×4 (07:30→21:15)
[2018-04-12] MEDS: ASPIRIN EC 81 MG TAB PO SCH (08:22)
[2018-04-12] MEDS: GABAPENTIN 300 MG CAP PO SCH ×3 (08:37→21:15)
[2018-04-12] MEDS ORDERED: HOME MED 1 EA UNK (Losartan Potassium [Losartan Potassium] 100 MG) PO SCH (09:00)
[2018-04-12] MEDS ORDERED: HOME MED 1 EA UNK (Omeprazole [Omeprazole] 20 MG) PO SCH (09:00)
[2018-04-12] MEDS: GEMFIBROZIL 600 MG TAB PO SCH (09:00)
[2018-04-12] MEDS ORDERED: HEPARIN 5000 UNIT/ML 1 ML VIAL ONE (09:38)
[2018-04-12] MEDS ORDERED: NA CHLORIDE 0.9% 50 ML ONE (09:39)
[2018-04-12] MEDS ORDERED: ATROPINE SULF 1 MG/10 ML SYR IV ONE (09:39)
[2018-04-12] MEDS ORDERED: NICARDIPINE HCL 25 MG/10 ML IV ONE (09:39)
[2018-04-12] MEDS ORDERED: NA CHLORIDE 0.9% 500 ML ONE ×2 (10:18→11:26)
[2018-04-12] MEDS ORDERED: LIDOCAINE 1% 20 ML MDV ONE (10:19)
[2018-04-12] MEDS ORDERED: HEPA 1000U/500MLS 2,000 UNIT/1,000 ML BAG IV ONE (10:34)
[2018-04-12] MEDS ORDERED: FENTANYL CITR 100 MCG/2 ML ONE (10:35)
[2018-04-12] MEDS ORDERED: MIDAZOLAM HCL 2 MG/2 ML INJ ONE ×2 (10:35→10:39)
[2018-04-12] MEDS ORDERED: PRASUGREL (EFFIENT) 10 MG TAB ONE (11:14)
[2018-04-12] MEDS ORDERED: ASPIRIN 325 MG TAB ONE (11:41)
--- NOTE | 2018-04-12 12:49 | ECHO ---
HEIGHT: 5 ft 10 in WEIGHT: 220 lb 9 oz DATE OF STUDY: 04/12/[address]: Bennie Wu MD 2-DIMENSIONAL: YES M.MODE: YES DOPPLER: YES COLOR FLOW: YES TDS: YES PORTABLE: NO DEFINITY: NO BUBBLE STUDY: NO DIAGNOSIS: CHEST PAIN CARDIAC HISTORY: CATHERIZATION: NO SURGERY: NO PROSTHETIC VALVE: NO PACEMAKER: NO MEASUREMENTS (cm) DIASTOLIC (NORMALS) SYSTOLIC (NORMALS) IVSd 1.0 (0.6-1.2) LA Diam 4.0 (1.9-4.0) LVEF 61% LVIDd 4.4 (3.5-5.7) LVIDs 3.0 (2.0-3.5) %FS 33% LVPWd 1.1 (0.6-1.2) Ao Diam 2.6 (2.0-3.7) 2 DIMENSIONAL ASSESSMENT: RIGHT ATRIUM: NORMAL LEFT ATRIUM: NORMAL RIGHT VENTRICLE: NORMAL LEFT VENTRICLE: NORMAL TRICUSPID VALVE: NORMAL MITRAL VALVE: NORMAL PULMONIC VALVE: NORMAL AORTIC VALVE: NORMAL PERICARDIAL EFFUSION: NONE AORTIC ROOT: NORMAL LEFT VENTRICULAR WALL MOTION: NORMAL DOPPLER/COLOR FLOW: MILD AORTIC AND MITRAL REGURGITATION. COMMENTS: NORMAL 2D ECHOCARDIOGRAM. MILD AORTIC AND MITRAL REGURGITATION. TECHNICALLY DIFFICULT STUDY. TECHNOLOGIST: Sigrid LI
--- NOTE | 2018-04-12 13:31 | P.PN ---
Subjective Date of Service: 04/12/18 Chief Complaint: chest pain, HTN pt seen and examined at bedside. Chart reviewed. Case DW with cardiology. Troponin I elevated. Pt is scheduled for Heart Cath today. Currently denies Chest pain and no other complains to offer. Review of Systems General: As per HPI Physical Examination - Vital Signs Temperature: 97.8 F Blood Pressure: 128/99 Pulse: 52 Respirations: 16 Pulse Ox (%): 93 - Physical Exam General: Alert, In no apparent distress HEENT: Atraumatic, PERRLA, EOMI Neck: Supple, JVD not distended Respiratory: Clear to auscultation bilaterally, Normal air movement Cardiovascular: Regular rate/rhythm, Normal S1 S2 Gastrointestinal: Normal bowel sounds, No tenderness Musculoskeletal: No tenderness Integumentary: No rashes Neurological: Normal speech, Normal tone, Normal affect Lymphatics: No axilla or inguinal lymphadenopathy - Studies Microbiology Data (last 24 hrs): 04/09/18 22:02 Clean Catch Urine [place] Count - Final >100,000 CFU/ML. 04/09/18 22:02 Clean Catch Urine - Final Medications List Reviewed: Yes Assessment & Plan - Problems (Diagnosis) (1) NSTEMI (non-ST elevated myocardial infarction) Onset Date: 04/12/18 Current Visit: Yes Status: Acute Plan: EKG with Nonspecific changes with elevated troponin I -Cardiology consulted. 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
--- NOTE | 2018-04-12 14:11 | OP ---
Surgeon: Wai Nathan MD Procedure: Left heart catheterization, coronary left ventricular angiography, percutaneous coronary intervention on obtuse marginal coronary artery, successful 99% stenosis reduced to 0% with a 3.0 x 1 2 mm Synergy stent. Procedure Findings: The patient has mild diffuse CAD tortuosity and plaque throughout, except in the obtuse marginal, a large vessel that had a 99% stenosis. He also has a ramus intermedius artery sup plying that same region of the heart. The 99% stenosis was reduced to 0% after the procedure. Procedure In Detail: The patient had a non-Q-wave myocardial infarction. 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 He gave informed consent. He was sedated with Versed and fentanyl, prepared and draped in the usual sterile fashion. Right radial approach was used. The right radial artery tissues were anesthetized with 1% lidocaine. The artery was entered using a 21-gauge needle. A 0.021 inch diameter guidewire was used to cannulate the radial artery and we placed a Ushahidiumo 6-Fr ench radial artery sheath in place, flushed it, and gave the radial cocktail consisting of nicardipin e, heparin and aspirin. We engaged all the coronary arteries using a TIG catheter in the future and a Alen catheter might work better, particularly for the right coronary. After this, we used an exch cande wire, exchanged for an Ikari left 4.0 with side holes. This was inadequate. The catheter actua lly kinked, so we used an Ikari left 3.5 with side holes and we were able to engage the left main. W tamiko then used a Stanfield wire to cross the lesion. After that, we used a 3.0 x 12 Synergy stent across t he lesion, was inflated to 8 atmospheres, postdilated once with 6 atmospheres, and withdrawn. Pictur es were taken. Adequate anatomy was seen. The wire was withdrawn and final pictures were taken. Ca theter was then removed. As soon as the decision was made to do a stent, he received Angiomax and ac tivated clotting time was over 300 seconds. At the end of the procedure, the sheath was pulled. The arteriotomy was closed using a TR band. Complications from e procedure none. BARON/MODL Voice ID: [id number] Report ID: [id number]
[2018-04-12] MEDS: LOSARTAN POTASSIUM 50 MG TABLET PO SCH (14:41)
[2018-04-12 17:36] LABS: A1c Component 1.01 mg/dL; Hemoglobin A1c 8.5 % (4-6.0)
[2018-04-12] MEDS ORDERED: ATORVASTATIN 80 MG TAB PO SCH (21:00)
[2018-04-13 05:19] LABS: Hematocrit 43.2 % (39.6-49.0); MCH 30.6 pg (27.0-35.0); MCV 91.4 fL (80-100); MPV 9.5 fL (7.6-11.3); RBC Red Blood Cell Count 4.72 M/uL (4.33-5.43)
[2018-04-13 05:38] LABS: Potassium 4.8 mEq/L (3.6-5.0)
[2018-04-13] MEDS: PANTOPRAZOLE 40MG TABLET PO SCH (05:56)
[2018-04-13] MEDS: METOPROLOL TAR 25 MG TAB PO SCH (05:56)
[2018-04-13] MEDS: INSULIN -REGULAR HUMAN 50 UNIT/0.5 ML ML SQ SCH (07:30)
[2018-04-13] MEDS ORDERED: CLOPIDOGREL 75 MG TABLET PO SCH (09:00)
[2018-04-13] MEDS: GABAPENTIN 300 MG CAP PO SCH (09:49)
[2018-04-13] MEDS: LOSARTAN POTASSIUM 50 MG TABLET PO SCH (09:50)
[2018-04-13] MEDS: ASPIRIN EC 81 MG TAB PO SCH (09:50)
[2018-04-13 10:44] VITALS: BP 149/76; TEMP 97.4
[2018-04-13 12:23] VITALS: O2SAT 96
--- NOTE | 2018-04-13 12:43 | P.DS ---
Admission Date: 04/10/18 Discharge Date: 04/13/18 Disposition: ROUTINE DISCHARGE Discharge Condition: GOOD Reason for Admission: chest pain, HTN Consultations: Cardiology - Dr Nathan Procedures: Cardiac Catherization with Stent Placement - Problems (1) NSTEMI (non-ST elevated myocardial infarction) Onset Date: 04/12/18 Status: Acute (2) Diabetes mellitus Onset Date: 04/12/18 Status: Chronic Qualifiers: Diabetes mellitus type: type 2 Diabetes mellitus skilled nursing insulin use: without manager intermediate use Diabetes mellitus complication status: with neurologic complications Diabetes mellitus complication detail: with polyneuropathy Qualified Code(s): E11.42 - Type 2 diabetes mellitus with diabetic polyneuropathy (3) Dyslipidemia Onset Date: 04/12/18 Status: Chronic (4) HTN (hypertension) Onset Date: 04/12/18 Status: Chronic Qualifiers: Hypertension type: essential hypertension Qualified Code(s): I10 - Essential (primary) hypertension Brief History of Present Illness: Mr Gates is a 57 years old male with history of DM II, HTN, GERD, dyslipidemia, who came to ED complaining of chest pain and HTN. 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 The pain is retrosteranal, radiated to bilateral shoulder and back , pressure like, 8/10 of intensity. He denied any nausea, SOB or diaphoretic episode. He has had this kind of pain in the past but less intense. His blood pressure was elevated at home as well, about 184/111. He has noticed that every time he has chest pain, blood pressure was elevated. In ED is initial BP was 201 /111. Chest pain decreased after been treated with morphine. Hospital Course: Overall during the hospital stay patient remained stable The patient was initially admitted to the hospital for NSTEMI with elevated troponin and nonspecific EKG changes. Cardiology was consulted who recommended the patient have a cardiac catheterization done and be kept on aspirin beta- mary ann Lipitor and Lovenox until then. Patient had a heart catheterization done and a stent placed in his blood vessel with 99% stenosis after the stent placement there was 0% stenosis and adequate blood flow was maintained. Patient also had an echocardiogram done here in the hospital which was within normal limits. Patient improved markedly after the procedure and was placed on Plavix. In 24 hr patient had no other complication and thus was discharged home on Plavix and Toprol. Patient was to follow up with cardiology in about 1- 2 days post discharge. Patient was also educated extensively on diet and exercise and lifestyle modification to help with his CAD. Vital Signs/Physical Exam: Temp Pulse Resp BP Pulse Ox 97.4 F 55 17 149/76 H 97 04/13/18 08:00 04/13/18 08:00 04/13/18 08:00 04/13/18 08:00 04/13/18 08:00 General: Alert, In no apparent distress HEENT: Atraumatic, PERRLA, EOMI Neck: Supple, JVD not distended Respiratory: Clear to auscultation bilaterally, Normal air movement Cardiovascular: Regular rate/rhythm, Normal S1 S2 Gastrointestinal: Normal bowel sounds, No tenderness Musculoskeletal: No tenderness Integumentary: No rashes Neurological: Normal speech, Normal tone, Normal affect Lymphatics: No axilla or inguinal lymphadenopathy Laboratory Data at Discharge: WBC 7.0 K/uL (4.3-10.9) 04/13/18 04:35 Hgb 14.4 g/dL (13.6-17.9) 04/13/18 04:35 Hct 43.2 % (39.6-49.0) 04/13/18 04:35 Plt Count 206 K/uL (152-406) 04/13/18 04:35 PT 11.9 SECONDS (9.5-12.5) 04/09/18 21:52 INR 1.01 04/09/18 21:52 APTT 32.9 SECONDS (24.3-36.9) 04/09/18 21:52 Sodium 137 mEq/L (135-145) 04/13/18 04:35 Potassium 4.8 mEq/L (3.6-5.0) 04/13/18 04:35 BUN 22 mg/dL (6-20) H 04/13/18 04:35 Creatinine 1.07 mg/dL (0.61-1.24) 04/13/18 04:35 Glucose 182 mg/dL (65-120) H 04/13/18 04:35 Magnesium 2.0 mg/dL (1.8-2.5) 04/10/18 05:46 Total Bilirubin 0.5 mg/dL (0.3-1.2) 04/09/18 21:52 AST 27 IU/L (10-42) 04/09/18 21:52 ALT 26 IU/L (10-60) 04/09/18 21:52 Alkaline Phosphatase 122 IU/L (42-121) H 04/09/18 21:52 Troponin I 3.07 ng/mL (<0.03) H* 04/10/18 14:10 B-Natriuretic Peptide 24 pg/ml (<=100) 04/09/18 21:52 Triglycerides 385 mg/dL (35-160) H 04/10/18 05:46 Cholesterol 156 mg/dL (<200) 04/10/18 05:46 HDL Cholesterol 31 mg/dL (27-67) 04/10/18 05:46 Cholesterol/HDL Ratio 5.03 04/10/18 05:46 Lipase 41 U/L (22-51) 04/09/18 21:52 Home Medications: Gabapentin 600 mg PO TID 04/10/18 Glipizide [Glucotrol] 5 mg PO DAILY 04/10/18 Hydrochlorothiazide 25 mg PO DAILY 04/10/18 Losartan Potassium 100 mg PO DAILY 04/10/18 Metformin HCl [Metformin HCl ER] 500 mg PO BID 04/10/18 Atorvastatin Calcium [Lipitor] 80 mg PO BEDTIME #30 tab 04/13/18 Clopidogrel Bisulfate [Plavix*] 75 mg PO DAILY #30 tablet 04/13/18 Metoprolol Tartrate [Lopressor*] 25 mg PO BID 6AM 6PM #60 tab 04/13/18 Nitroglycerin [Nitrostat*] 0.4 mg SL UD PRN #1 bottle 04/13/18 Pantoprazole [Protonix Tab*] 40 mg PO ACB #30 tab 04/13/18 New Medications: Atorvastatin Calcium [Lipitor] 80 mg PO BEDTIME #30 tab Clopidogrel Bisulfate [Plavix*] 75 mg PO DAILY #30 tablet Metoprolol Tartrate [Lopressor*] 25 mg PO BID 6AM 6PM #60 tab Nitroglycerin [Nitrostat*] 0.4 mg SL UD PRN #1 bottle PRN Reason: Chest Pain Pantoprazole [Protonix Tab*] 40 mg PO ACB #30 tab Patient Discharge Instructions: Please f/u with PCP and Cardiology. New medication. Plavix. Toprol. okay to DC per Dr Guevara Diet: Regular Activity: Ad brooke Followup: Daron Bo MD [ACTIVE - CAN ADMIT] -
--- NOTE | 2018-04-13 21:43 | PN ---
Subjective: Mr. Gates was in the hospital for a few days following a subendocardial [place]. Yesterday, stephen morrison underwent a heart catheterization and a stent by Dr. Nathan. He was found to have some other coron rip artery disease, but not severe enough for intervention. Overnight, the patient did well. No tel emetry changes. No symptoms. Right wrist was intact at the catheterization site. The patient can g o home today and he will continue his home medication which include losartan and Lipitor. I suggest we go up on the Lipitor to 80 mg daily. I called a prescription for Toprol-XL 25 mg daily as well as Plavix 75 mg daily to take along with his home medication and he will see me in office in the next 2 weeks. I suggest he go back to work next Thursday. MARIA DOLORES/FRIEDA Voice ID: [id number] Report ID: [id number]
== END 2018-04-13 11:44 | disposition home or self-care (01) | DRG 247 ==
LOC: ER 21:01 → OBSVTOIN 21:44 → ERHOLD 21:44 → INTOOBSV 21:44 → 2ND 04-10 00:55 → OBSVTOIN 04-10 10:37
PROVIDERS: ADMIT Internal Medicine; ATTEND Family Medicine
PROC: 027034Z Dilation of Coronary Artery, One Artery with Drug-eluting Intraluminal Device, Percutaneous Approach (ICD-10-PCS; principal; 2018-04-12)
PROC: 4A023N7 Measurement of Cardiac Sampling and Pressure, Left Heart, Percutaneous Approach (ICD-10-PCS; 2018-04-12)
PROC: B201YZZ Plain Radiography of Multiple Coronary Arteries using Other Contrast (ICD-10-PCS; 2018-04-12)
PROC: B205YZZ Plain Radiography of Left Heart using Other Contrast (ICD-10-PCS; 2018-04-12)
DX: I21.4 Non-ST elevation (NSTEMI) myocardial infarction (principal); I10 Essential (primary) hypertension; E11.9 Type 2 diabetes mellitus without complications; K21.9 Gastro-esophageal reflux disease without esophagitis; E78.5 Hyperlipidemia, unspecified; F17.200 Nicotine dependence, unspecified, uncomplicated
CPT/HCPCS: 36415; 71045; 71275; 74175; 80048; 80061; 80076; 81003; 81015; 82550; 82553; 82962; 83036; 83690; 83735; 83880; 84484; 85025; 85027; 85347; 85610; 85730; 87086; 87088; 92928; 93005; 93306; 93458; 96372; 99285; C1725; C1893; J0360; J0583; J1644; J1650; J2250; J2405; J3010; J3475; J7030; Q9967

== ENCOUNTER 2021-01-20 18:47 | Emergency (ER) | payer OTHER ==
[2021-01-20 19:11] LABS: Absolute Lymphocytes (CBC) 1.6 K/uL (0.7-4.9); Basophils % 0.2 % (0-1.3); Hematocrit 36.1 % (39.6-49.0); Lymphocytes % 28.9 % (15.3-44.8); MPV 9.5 fL (7.6-11.3); RBC Red Blood Cell Count 3.88 M/uL (4.33-5.43)
[2021-01-20 19:15] LABS: Protime INR 1.1
[2021-01-20] MEDS ORDERED: NA CHLORIDE 0.9% 1,000 ML ONE ×3 (19:18→20:47)
[2021-01-20 19:27] LABS: ALT/SGPT 29 U/L (12-78); AST/SGOT 19 U/L (15-37); Albumin 3.2 g/dL (3.4-5.0); Alkaline Phosphatase 129 U/L (45-117); BUN Blood Urea Nitrogen 20 mg/dL (7-18); Bicarbonate 22 mmol/L (21-32); Bilirubin Direct 0.1 mg/dL (0-0.2); Bilirubin Total 0.5 mg/dL (0.2-1.0); Glucose Level 212 mg/dL (74-106); Magnesium 1.9 mg/dL (1.8-2.4); NT PRO-BNP 220 pg/mL (<125); Potassium 3.8 mmol/L (3.5-5.1); Protein, Total 6.4 g/dL (6.4-8.2); Sodium Level 139 mmol/L (136-145); Troponin (Emerg Dept Use Only) < 0.02 ng/mL (0.0-0.045)
--- NOTE | 2021-01-20 20:11 | RAD REPORT ---
EXAM DESCRIPTION: RAD - Chest Single View - 01/20/2021 7:41 pm CLINICAL HISTORY: CHEST PAIN COMPARISON: April 2018 TECHNIQUE: AP portable chest image was obtained 01/20/2021 7:41 pm . FINDINGS: No focal mass or consolidation. Interstitial pattern is increased slightly over comparison . Heart size and vasculature also fractionally increased. Trachea is midline. No measurable pleural e ffusion and no pneumothorax. No acute bony abnormality seen. No acute aortic findings suspected. IMPRESSION: No focal mass or consolidation. Increased interstitial opacification from comparison may indicate a mild edema or infiltrate process.
--- NOTE | 2021-01-20 22:10 | ER ---
Nurse's Notes [facility] Name: Olga Gates Age: 60 yrs Sex: Male : 1960 Arrival Date: 01/20/2021 Time: 18:49 Bed 6 Private MD: Diagnosis: Syncope and collapse Presentation: 01/20 18:49 Chief complaint: EMS states: Sudden onset substernal chest pain, diaphoresis, and near vg1 syncope after picking up grandchild. BP 98/68, HR 60s, SpO2 91% on RA, BGL 139. 18gRAC. Coronavirus screen: At this time, the client does not indicate any symptoms associated with coronavirus-19. Ebola Screen: No symptoms or risks identified at this time. Initial Sepsis Screen: Does the patient meet any 2 criteria? No. Patient's initial sepsis screen is negative. Does the patient have a suspected source of infection? No. Patient's initial sepsis screen is negative. Risk Assessment: Do you want to hurt yourself or someone else? Patient reports no desire to harm self or others. Onset of symptoms was January 20, 2021. 18:49 Acuity: LUCAS 2 vg1 18:49 Method Of Arrival: EMS: [facility] vg1 Historical: - Allergies: 18:53 PENICILLINS; vg1 18:53 Sulfa (Sulfonamide Antibiotics); vg1 - Home Meds: 18:53 aspirin 81 mg Oral chew 1 tab once daily [Active]; atorvastatin Oral [Active]; vg1 Glipizide Oral [Active]; Hydrochlorothiazide Oral [Active]; losartan Oral [Active]; Metformin Oral [Active]; Omeprazole Oral [Active]; - PMHx: 18:53 Diabetes - NIDDM; GERD; High Cholesterol; Hypertension; vg1 - Immunization history:: Adult Immunizations up to date. - Social history:: Smoking status: Patient denies any tobacco usage or history of. Screenin:10 Abuse screen: Denies threats or abuse. Denies injuries from another. Nutritional ss screening: No deficits noted. Tuberculosis screening: Never had TB. Fall Risk None identified. IV access (20 points). Assessment: 19:00 General: Appears in no apparent distress. comfortable, Behavior is calm, cooperative, ss Denies fever, feeling ill, fatigue, chills. Pain: Denies pain. Neuro: Level of Consciousness is awake, alert, obeys commands, Oriented to person, place, time, situation. Cardiovascular: Heart tones S1 S2 present Pulses are palpable in right radial artery, right posterior tibial artery, left radial artery and left posterior tibial artery Edema is absent. 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 Respiratory: Airway is patent Respiratory effort is even, unlabored, Respiratory pattern is regular, symmetrical. GI: Patient currently denies diarrhea, vomiting. GI: Abdomen is round non-distended, Abd is soft and non tender X 4 quads. : No signs and/or symptoms were reported regarding the genitourinary system. Denies burning with urination, urinary frequency. EENT: Oral mucosa is moist. Throat is clear. Derm: Skin is intact, is healthy with good turgor, Skin is dry, Skin is normal, Skin temperature is cool. 20:33 Reassessment: Patient appears in no apparent distress at this time. Patient and/or jb4 family updated on plan of care and expected duration. Pain level reassessed. Patient is alert, oriented x 3, equal unlabored respirations, skin warm/dry/pink. PT verbalized intent to go home and not stay in the hospital or be transferred. Pt agreed to stay and receive second bolus of NS. Provider is aware of PT's desire to leave AMA and has spoken with the Pt. 21:57 Reassessment: Patient appears in no apparent distress at this time. Patient and/or jb4 family updated on plan of care and expected duration. Pain level reassessed. Patient is alert, oriented x 3, equal unlabored respirations, skin warm/dry/pink. PT continues to refuse hospitalization. Informed Pt that he would be leaving against medical advise and that symptoms could return or worsen up to the point of . Pt verbalized understanding of risk stating " I want to go home, I think I will be alright." AMA formed signed. Vital Signs: 18:49 BP 76 / 58; Pulse 62; Resp 22; Temp 97.9; Pulse Ox 94% on R/A; Pain 2/10; vg1 19:09 BP 79 / 50; Pulse 61; Resp 16; Pulse Ox 92% on R/A; ss 20:15 BP 87 / 54; Pulse 58; Resp 16; Pulse Ox 98% on R/A; jb4 21:30 BP 93 / 53; Pulse 66; Resp 18; Pulse Ox 98% on R/A; jb4 ED Course: 18:49 Patient arrived in ED. vg1 18:52 Triage completed. vg1 18:53 Arm band placed on. vg1 18:58 Charles Gray PA is PHCP. [facility] 18:58 Bennie Wu MD is Attending Physician. [facility] 19:00 Maintain EMS IV. Dressing intact. Good blood return noted. Site clean \\T\\ dry. Gauge \\T\\ ss site: 18 gauge in R AC. Patient maintains SpO2 saturation greater than 95% on room air. 19:10 Patient has correct armband on for positive identification. Bed in low position. Call ss light in reach. monitor car operator on. Pulse ox on. NIBP on. 20:55 Paco Ramos, SHAKILA is Primary Nurse. rv 22:00 IV discontinued, intact, bleeding controlled, No redness/swelling at site. Pressure jb4 dressing applied. Administered Medications: 19:09 Drug: NS 0.9% 1000 ml Route: IV; Rate: 1000 ml; Site: right antecubital; ss 20:30 Follow up: Response: No adverse reaction; IV Status: Completed infusion; IV Intake: jb4 1000ml 20:33 Drug: NS 0.9% 1000 ml Route: IV; Rate: 1 bolus; Site: right antecubital; jb4 21:45 Follow up: Response: No adverse reaction; Blood pressure is elevated; IV Status: jb4 Completed infusion; IV Intake: 1000ml Intake: 20:30 IV: 1000ml; Total: 1000ml. jb4 21:45 IV: 1000ml; Total: 2000ml. jb4 Outcome: 21:59 AMA AMA form signed jb4 22:08 Patient left the ED. jb4 Signatures: Charles Gray PA PA jmm Smirch, Shelby, RN RN ss Bryson, James RN SHAKILA jb4 Paco Ramos, Nany Jensen RN, RN RN vg1
--- NOTE | 2021-01-20 22:11 | EDPHYS ---
Physician Documentation [facility] Name: Olga Gates Age: 60 yrs Sex: Male : 1960 Arrival Date: 01/20/2021 Time: 18:49 Bed 6 Private MD: ED Physician Bennie Wu HPI: 01/20 18:57 This 60 yrs old Male presents to ER via EMS with complaints of Near Syncope, jmm Chest Pain. 18:57 The patient has experienced syncope. Onset: The symptoms/episode began/occurred jmm acutely, just prior to arrival. Duration: This was a single episode. Associated injury: The patient did not suffer any apparent associated injury. Associated signs and symptoms: Pertinent positives: chest pain. Historical: - Allergies: 18:53 PENICILLINS; vg1 18:53 Sulfa (Sulfonamide Antibiotics); vg1 - Home Meds: 18:53 aspirin 81 mg Oral chew 1 tab once daily [Active]; atorvastatin Oral [Active]; vg1 Glipizide Oral [Active]; Hydrochlorothiazide Oral [Active]; losartan Oral [Active]; Metformin Oral [Active]; Omeprazole Oral [Active]; - PMHx: 18:53 Diabetes - NIDDM; GERD; High Cholesterol; Hypertension; vg1 - Immunization history:: Adult Immunizations up to date. - Social history:: Smoking status: Patient denies any tobacco usage or history of. ROS: 18:57 Constitutional: Negative for fever, chills, and weight loss. jmm 18:57 Cardiovascular: Positive for chest pain. 18:57 Neuro: Positive for syncope. 18:57 All other systems are negative. Exam: 18:57 Constitutional: This is a well developed, well nourished patient who is awake, alert, jmm and in no acute distress. Head/Face: atraumatic. Eyes: EOMI, no conjunctival erythema appreciated ENT: Moist Mucus Membranes Neck: Trachea midline, Supple Chest/axilla: Normal chest wall appearance and motion. Cardiovascular: Regular rate and rhythm. No edema appreciated Respiratory: Normal respirations, no respiratory distress appreciated Abdomen/GI: Non distended, soft Back: Normal ROM Skin: General appearance color normal MS/ Extremity: Moves all extremities, no obvious deformities appreciated, no edema noted to the lower extremities Neuro: Awake and alert, normal gait Psych: Behavior is normal, Mood is normal, Patient is cooperative and pleasant Vital Signs: 18:49 BP 76 / 58; Pulse 62; Resp 22; Temp 97.9; Pulse Ox 94% on R/A; Pain 2/10; vg1 19:09 BP 79 / 50; Pulse 61; Resp 16; Pulse Ox 92% on R/A; ss 20:15 BP 87 / 54; Pulse 58; Resp 16; Pulse Ox 98% on R/A; jb4 21:30 BP 93 / 53; Pulse 66; Resp 18; Pulse Ox 98% on R/A; jb4 MDM: 18:58 Patient medically screened. michael 20:41 Data reviewed: vital signs, nurses notes. Counseling: I had a detailed discussion with max the patient and/or guardian regarding: the historical points, exam findings, and any diagnostic results supporting the discharge/admit diagnosis, lab results, radiology results, the need for further work-up and treatment in the hospital. Refusal of service: The patient/guardian displays adequate decision making capability and despite a detailed discussion of alternatives, benefits, risks, and consequences refuses: Admission to the hospital for further work-up and treatment. 01/20 18:57 Order name: Basic Metabolic Panel 01/20 18:57 Order name: CBC with Diff 01/20 18:57 Order name: LFT's 01/20 18:57 Order name: Magnesium 01/20 18:57 Order name: NT PRO-BNP 01/20 18:57 Order name: PT-INR 01/20 18:57 Order name: Troponin (emerg Dept Use Only) 01/20 18:58 Order name: D-Dimer [facility] 01/20 19:12 Order name: CBC with Automated Diff; Complete Time: 19:16 EDIN 01/20 19:17 Order name: Protime (+INR); Complete Time: 19:20 EDMS 01/20 19:17 Order name: D-Dimer; Complete Time: 19:20 EDIN 01/20 19:28 Order name: Basic Metabolic Panel; Complete Time: 19:28 EDMS 01/20 19:28 Order name: Liver (Hepatic) Function; Complete Time: 19:28 EDMS 01/20 19:28 Order name: Troponin (Emerg Dept Use Only); Complete Time: 19:28 EDIN 01/20 18:57 Order name: XRAY Chest (1 view) 01/20 18:57 Order name: EKG; Complete Time: 18:58 ss 01/20 18:57 Order name: Cardiac monitoring; Complete Time: 18:57 ss 01/20 18:57 Order name: EKG - Nurse/Tech; Complete Time: 18:57 ss 01/20 18:57 Order name: IV Saline Lock; Complete Time: 18:57 ss 01/20 18:57 Order name: Labs collected and sent; Complete Time: 18:58 01/20 18:57 Order name: O2 Per Protocol; Complete Time: 18:58 ss 01/20 18:57 Order name: O2 Sat Monitoring; Complete Time: 18:58 ss 01/20 19:28 Order name: NT PRO-BNP; Complete Time: 19:28 EDMS 01/20 19:28 Order name: Magnesium; Complete Time: 19:28 EDMS 01/20 20:11 Order name: RAD; Complete Time: 20:14 EDMS Administered Medications: 19:09 Drug: NS 0.9% 1000 ml Route: IV; Rate: 1000 ml; Site: right antecubital; ss 20:30 Follow up: Response: No adverse reaction; IV Status: Completed infusion; IV Intake: jb4 1000ml 20:33 Drug: NS 0.9% 1000 ml Route: IV; Rate: 1 bolus; Site: right antecubital; jb4 21:45 Follow up: Response: No adverse reaction; Blood pressure is elevated; IV Status: jb4 Completed infusion; IV Intake: 1000ml Disposition: 01/21 06:57 Co-signature as Attending Physician, Bennie Wu MD I agree with the assessment and michael plan of care. Disposition: 01/20/21 22:05 Patient has left against medical advice. Impression: Syncope and collapse. - Patients states they are going to Home. - Condition is Stable. Follow up: Private Physician; When: Upon discharge from the Emergency Department; Reason: Recheck today's complaints, Continuance of care, Re-evaluation by your physician. - Problem is new. - Symptoms have improved. Signatures: Dispatcher [employer] Bennie Bell MD MD cha Mickail, Joel, PA PA jmm Smirch, Shelby, RN RN Ney Sky RN RN 4 Blu Whitten MD MD tw4 Kushal, Nany, RN RN vg1 Corrections: (The following items were deleted from the chart) 01/20 22:08 22:05 01/20/2021 22:05 Patients has left against medical advice. Impression: Syncope jb4 and collapse. Patient states they are going to Home. Condition is Stable. Follow up: Private Physician; When: Upon discharge from the Emergency Department; Reason: Recheck today's complaints, Continuance of care, Re-evaluation by your physician. Problem is new. Symptoms have improved. tw4
[2021-01-21 17:18] VITALS: TEMP 97.9
[2021-01-21 17:21] VITALS: O2SAT 98
[2021-01-21 17:22] VITALS: BP 93/53
== END 2021-01-20 22:08 | disposition left against medical advice (07) ==
LOC: ER 18:47
DX: R55 Syncope and collapse (principal); R07.9 Chest pain, unspecified; I10 Essential (primary) hypertension; E11.9 Type 2 diabetes mellitus without complications; E78.00 Pure hypercholesterolemia, unspecified; Z79.82 Long term (current) use of aspirin; Z88.0 Allergy status to penicillin; Z88.2 Allergy status to sulfonamides
CPT/HCPCS: 93005; 85025; 80048; 36415; 83735; 85610; 85379; 80076; 84484; 83880; 71045; J7030 ×3; 96360; 96361; 99284

== ENCOUNTER 2021-05-10 15:06 | Emergency (ER) | payer OTHER ==
--- NOTE | 2021-05-10 17:27 | RAD REPORT ---
EXAM DESCRIPTION: Hannah Single View05/10/2021 5:14 pm CLINICAL HISTORY: Cough COMPARISON: January 2021 FINDINGS: Opacity is present within the medial right lung base. The remainder lungs appear clear. Heart is mildly enlarged IMPRESSION: Opacity medial right lung base likely pneumonia
[2021-05-10 17:35] LABS: Absolute Lymphocytes (CBC) 0.5 K/uL (0.7-4.9); Basophils % 0.4 % (0-1.3); Hematocrit 43.4 % (39.6-49.0); Lymphocytes % 11.9 % (15.3-44.8); MPV 9.1 fL (7.6-11.3); RBC Red Blood Cell Count 4.81 M/uL (4.33-5.43)
[2021-05-10] MEDS ORDERED: MORPHINE 4 MG/ML SYR ONE (17:47)
[2021-05-10] MEDS ORDERED: ACETAMINOPHEN 325 MG TABLET ONE (17:47)
[2021-05-10] MEDS ORDERED: NA CHLORIDE 0.9% 1,000 ML ONE (17:48)
[2021-05-10] MEDS ORDERED: ONDANSETRON 4 MG/2 ML VIAL ONE (17:48)
--- NOTE | 2021-05-10 17:59 | RAD REPORT ---
EXAM DESCRIPTION: CT - Head Brain Wo Cont - 05/10/2021 5:40 pm CLINICAL HISTORY: Headache COMPARISON: None. TECHNIQUE: Computed axial tomography of the head was obtained. IV contrast was not requested. All CT scans are performed using dose optimization technique as appropriate and may include automated exposure control or mA/KV adjustment according to patient size. FINDINGS: An intracranial bleed is not seen . The ventricles are normal in caliber. No extra-axial fluid collection is noted. Empty sella turcica is present Fluid within the sinuses/ mastoids is not seen. IMPRESSION: No acute intracranial abnormality is seen. If patient's symptoms persist MRI of the bra in would be recommended.
[2021-05-10 18:04] LABS: Bilirubin Total 0.8 mg/dL (0.2-1.0); Protein, Total 7.5 g/dL (6.4-8.2)
[2021-05-10] MEDS ORDERED: Levofloxacin 750mg IV 750 MG/150 ML BAG IV ONE (20:11)
--- NOTE | 2021-05-10 20:35 | EDPHYS ---
Physician Documentation [facility] Name: Olga Gates Age: 60 yrs Sex: Male : 1960 Arrival Date: 05/10/2021 Time: 15:10 Bed 17 Private MD: ED Physician Juan Manuel Lopes HPI: 05/10 16:40 This 60 yrs old Male presents to ER via Ambulatory with complaints of Flu jmm Symptoms. 16:40 Onset: The symptoms/episode began/occurred gradually, 4 day(s) ago. Modifying factors: jmm The symptoms are alleviated by nothing. the symptoms are aggravated by nothing. Associated signs and symptoms: Pertinent positives: diarrhea, headache. It is unknown whether or not the patient has had similar symptoms in the past. Denies vomiting. Denies abdominal pain. . Historical: - Allergies: 15:18 PENICILLINS; ll1 15:18 Sulfa (Sulfonamide Antibiotics); ll1 - PMHx: 15:18 Diabetes - NIDDM; GERD; High Cholesterol; Hypertension; ll1 - PSHx: 15:18 heart stent; Appendectomy; ll1 - Immunization history:: Flu vaccine is up to date. - Social history:: Smoking status: Patient denies any tobacco usage or history of. ROS: 16:40 Constitutional: Positive for body aches, fever. jmm 16:40 Cardiovascular: Positive for 16:40 Respiratory: Positive for cough. 16:40 Neuro: Positive for headache. 16:40 All other systems are negative. Exam: 16:40 Constitutional: This is a well developed, well nourished patient who is awake, alert, jmm and in no acute distress. Head/Face: atraumatic. Eyes: EOMI, no conjunctival erythema appreciated ENT: Moist Mucus Membranes Neck: Trachea midline, Supple Chest/axilla: Normal chest wall appearance and motion. Cardiovascular: Regular rate and rhythm. No edema appreciated Respiratory: Normal respirations, no respiratory distress appreciated Abdomen/GI: Non distended, soft Back: Normal ROM Skin: General appearance color normal MS/ Extremity: Moves all extremities, no obvious deformities appreciated, no edema noted to the lower extremities Neuro: Awake and alert, normal gait Psych: Behavior is normal, Mood is normal, Patient is cooperative and pleasant Vital Signs: 15:15 BP 147 / 90; Pulse 81; Resp 22; Temp 102.1; Pulse Ox 97% on R/A; Weight 102.97 kg; ll1 Height 5 ft. 10 in. (177.80 cm); Pain 10/10; 18:49 BP 105 / 88; Pulse 74; Resp 19 S; Temp 99.6(O); Pulse Ox 97% on R/A; jd3 19:23 BP 108 / 66; Pulse 75; Resp 18; Pulse Ox 98% ; ak2 15:15 Body Mass Index 32.57 (102.97 kg, 177.80 cm) ll1 MDM: 16:40 Patient medically screened. [facility] 20:33 Data reviewed: vital signs, nurses notes. Counseling: I had a detailed discussion with raffaele the patient and/or guardian regarding: the historical points, exam findings, and any diagnostic results supporting the discharge/admit diagnosis, lab results, radiology results, the need for outpatient follow up, to return to the emergency department if symptoms worsen or persist or if there are any questions or concerns that arise at home. Refusal of service: The patient/guardian displays adequate decision making capability and despite a detailed discussion of alternatives, benefits, risks, and consequences refuses: Admission to the hospital for further work-up and treatment, Lumbar Puncture procedure. ED course: Headache has decreased in severity in the ED. I discussed the possibility of viral meningitis. Advised to return to the ED if symptoms worsen. patient understood and agrees with the plan of care. . 05/10 16:49 Order name: CBC with Diff; Complete Time: 17:48 [facility] 05/10 16:49 Order name: CMP; Complete Time: 18:31 [facility] 05/10 16:49 Order name: Procalcitonin; Complete Time: 18:31 [facility] 05/10 16:49 Order name: Lactate; Complete Time: 17:48 [facility] 05/10 16:49 Order name: Blood Culture Adult (2) [facility] 05/10 16:49 Order name: Flu; Complete Time: 18:31 [facility] 05/10 16:49 Order name: Strep; Complete Time: 18:31 [facility] 05/10 16:49 Order name: [place] Screen Profile; Complete Time: 18:31 [facility] 05/10 16:50 Order name: Chest Single View XRAY [facility] 05/10 16:50 Order name: CT Head Brain wo Cont; Complete Time: 18:31 [facility] 05/10 17:28 Order name: RAD; Complete Time: 17:30 [facility] 05/10 18:11 Order name: Throat Culture [facility] 05/10 18:44 Order name: SARS-COV-2 RT PCR; Complete Time: 19:48 [facility] 05/10 16:49 Order name: Saline Lock; Complete Time: 17:36 [facility] Administered Medications: 17:36 Drug: morphine 4 mg Route: IVP; Site: right antecubital; jd3 17:36 Drug: Zofran (Ondansetron) 4 mg Route: IVP; Site: right antecubital; jd3 17:36 Drug: Tylenol 650 mg Route: PO; jd3 17:36 Drug: NS 0.9% 1000 ml Route: IV; Rate: 1 bolus; Site: right antecubital; jd3 19:50 Drug: LevaQUIN (levofloxacin) 750 mg Volume: 150 ml; Route: IVPB; Infused Over: 90 ak2 mins; Site: right antecubital; Disposition Summary: 05/10/21 20:34 Discharge Ordered Location: Home [facility] Condition: Stable [facility] Diagnosis - Pneumonia [facility] Followup: [facility] - With: Private Physician - When: 2 - 3 days - Reason: Recheck today's complaints, Continuance of care, Re-evaluation by your physician Discharge Instructions: - Discharge Summary Sheet [facility] - Community-Acquired Pneumonia, Adult [facility] Forms: - Medication Reconciliation Form [facility] - Thank You Letter [facility] - Antibiotic Education [facility] - Prescription Opioid Use [facility] Prescriptions: - Levafloxacin 750 mg - take 1 tablet by ORAL route once daily for 10 days; 10 tablet; Refills: 0, [facility] Product Selection Permitted - acetaminophen-codeine 300-15 mg Oral tablet - take 1 tablet by ORAL route every 6 hours; 12 tablet; Refills: 0, Product [facility] Selection Permitted Addendum: 05/13/2021 13:32 Co-signature as Attending Physician, Juan Manuel Lopes MD I agree with the assessment and k plan of care. Signatures: Dispatcher [employer] [facility] Juan Manuel Lopes MD MD kdr Mickail, Joel, PA PA [facility] Stefano Mckeon RN RN jd3 Diogenes Sun RN RN 1 Tomy Curiel2 Corrections: (The following items were deleted from the chart) 05/10 17:49 16:50 CORONAVIRUS+[email or web address] ordered. EDMS EDMS
--- NOTE | 2021-05-10 20:35 | ER ---
Nurse's Notes [facility] Name: Olga Gates Age: 60 yrs Sex: Male : 1960 Arrival Date: 05/10/2021 Time: 15:10 Bed 17 Private MD: Diagnosis: Pneumonia Presentation: 05/10 15:15 Chief complaint: Patient states: Fever, cough, congestion, body aches, fatigue began ll1 Thursday. Fever 102 at home. Nausea and some diarrhea. Covid test was negative. Coronavirus screen: Client denies travel out of the [place] in the last 14 days. chills, congestion, cough unrelated to allergies, diarrhea, fatigue, fever, headache, muscle pain, nausea, shaking with chills, shortness of breath, sore throat, loss of taste or smell, Client presents with at least one sign or symptom that may indicate coronavirus-19. Standard/surgical mask placed on the client. Ebola Screen: Patient denies travel to an Ebola-affected area in the 21 days before illness onset. Initial Sepsis Screen: Does the patient meet any 2 criteria? No. Patient's initial sepsis screen is negative. Does the patient have a suspected source of infection? Yes: Productive cough/pneumonia. Risk Assessment: Do you want to hurt yourself or someone else? Patient reports no desire to harm self or others. Onset of symptoms was May 06, 2021. 15:15 Method Of Arrival: Ambulatory ll1 15:15 Acuity: LUCAS 3 ll1 Historical: - Allergies: 15:18 PENICILLINS; ll1 15:18 Sulfa (Sulfonamide Antibiotics); ll1 - PMHx: 15:18 Diabetes - NIDDM; GERD; High Cholesterol; Hypertension; ll1 - PSHx: 15:18 heart stent; Appendectomy; ll1 - Immunization history:: Flu vaccine is up to date. - Social history:: Smoking status: Patient denies any tobacco usage or history of. Screenin:51 Abuse screen: Denies threats or abuse. Nutritional screening: No deficits noted. jd3 Tuberculosis screening: No symptoms or risk factors identified. Fall Risk Ambulatory Aid- None/Bed Rest/Nurse Assist (0 pts). Gait- Normal/Bed Rest/Wheelchair (0 pts) Mental Status- Oriented to own ability (0 pts). Total Cornell Fall Scale indicates No Risk (0-24 pts). Assessment: 16:45 General: Appears in no apparent distress. comfortable, Behavior is calm, cooperative, jd3 appropriate for age. Pain: Complains of pain in head Quality of pain is described as aching, pressure, tender. Neuro: Level of Consciousness is awake, alert, obeys commands, Oriented to person, place, time, situation. Cardiovascular: Denies chest pain, Capillary refill < 3 seconds Patient's skin is warm and dry. Respiratory: Reports shortness of breath on exertion cough that is persistent Airway is patent Respiratory effort is even, unlabored, Respiratory pattern is regular, symmetrical. GI: No signs and/or symptoms were reported involving the gastrointestinal system. : No signs and/or symptoms were reported regarding the genitourinary system. EENT: Reports nasal congestion. Derm: Skin is intact, Skin is dry, Skin is normal, Skin temperature is warm. Musculoskeletal: Circulation, motion, and sensation intact. Range of motion: intact in all extremities. 17:45 Reassessment: Patient appears in no apparent distress at this time. No changes from jd3 previously documented assessment. Patient and/or family updated on plan of care and expected duration. Pain level reassessed. Patient is alert, oriented x 3, equal unlabored respirations, skin warm/dry/pink. 18:49 Reassessment: Patient appears in no apparent distress at this time. Patient and/or jd3 family updated on plan of care and expected duration. Pain level reassessed. Patient is alert, oriented x 3, equal unlabored respirations, skin warm/dry/pink. Patient states feeling better. 19:23 Reassessment: Patient and/or family updated on plan of care and expected duration. Pain ak2 level reassessed. Vital Signs: 15:15 BP 147 / 90; Pulse 81; Resp 22; Temp 102.1; Pulse Ox 97% on R/A; Weight 102.97 kg; ll1 Height 5 ft. 10 in. (177.80 cm); Pain 10/10; 18:49 BP 105 / 88; Pulse 74; Resp 19 S; Temp 99.6(O); Pulse Ox 97% on R/A; jd3 19:23 BP 108 / 66; Pulse 75; Resp 18; Pulse Ox 98% ; ak2 15:15 Body Mass Index 32.57 (102.97 kg, 177.80 cm) ll1 ED Course: 15:10 Patient arrived in ED. wm 15:15 Arm band placed on. ll1 15:18 Triage completed. ll1 16:16 Patient placed in an exam room, on a stretcher. iw 16:18 Charles Gray PA is PHCP. m 16:18 Juan Manuel Lopes MD is Attending Physician. [facility] 16:32 Stefano Mckeon, RN is Primary Nurse. jd3 17:40 CT Head Brain wo Cont In Process Unspecified. EDMS 18:51 Patient has correct armband on for positive identification. Bed in low position. Call j light in reach. Side rails up X 1. Adult w/ patient. Pulse ox on. NIBP on. 20:45 No provider procedures requiring assistance completed. IV discontinued. ak2 Administered Medications: 17:36 Drug: morphine 4 mg Route: IVP; Site: right antecubital; jd3 17:36 Drug: Zofran (Ondansetron) 4 mg Route: IVP; Site: right antecubital; jd3 17:36 Drug: Tylenol 650 mg Route: PO; jd3 17:36 Drug: NS 0.9% 1000 ml Route: IV; Rate: 1 bolus; Site: right antecubital; jd3 19:50 Drug: LevaQUIN (levofloxacin) 750 mg Volume: 150 ml; Route: IVPB; Infused Over: 90 ak2 mins; Site: right antecubital; Outcome: 20:34 Discharge ordered by MD. [facility] 20:45 Discharged to home ambulatory. ak2 20:45 Condition: good 20:45 Discharge instructions given to patient, Prescriptions given X 20:46 Patient left the ED. ak2 Signatures: Dispatcher [employer] EDMS Charles Gray PA PA jmm Williams, Irene, RN RN Stefano Mckeon, RN Diogenes Sanchez RN RN 1 Tomy Curiel ak2 Elodia Ortiz
[2021-05-10 21:34] VITALS: TEMP 99.6
[2021-05-10 21:36] VITALS: BP 108/66; O2SAT 98
== END 2021-05-10 20:46 | disposition home or self-care (01) ==
LOC: ER 15:06
DX: J18.9 Pneumonia, unspecified organism (principal); I10 Essential (primary) hypertension; E11.9 Type 2 diabetes mellitus without complications; Z88.0 Allergy status to penicillin; Z88.2 Allergy status to sulfonamides; Z20.822 Contact with and (suspected) exposure to COVID-19; Z95.818 Presence of other cardiac implants and grafts
CPT/HCPCS: 87040 ×2; 87070; 85025; 36415; 86308; 87081; 83605; 80053; 84145; 87804 ×2; 70450; 71045; 96375; 96374; 99284; U0003; J7030; J2405

== ENCOUNTER 2024-03-17 09:47 | Emergency (ER) | payer OTHER ==
--- NOTE | 2024-03-17 10:21 | RAD REPORT ---
EXAM DESCRIPTION: CT - Ct Stroke Brain Wo Cont - 03/17/2024 10:16 am CLINICAL HISTORY: Blurred vision COMPARISON: none TECHNIQUE: Computed axial tomography of the head was obtained. All CT scans are performed using dose optimization technique as appropriate and may include automated exposure control or mA/KV adjustment according to patient size. FINDINGS: An intracranial bleed is not seen . The ventricles are normal in caliber. No extra-axial fluid collection is noted. No significant hyperdensity within the brain noted Fluid within the sinuses/ mastoids is not seen. IMPRESSION: No acute intracranial abnormality is seen. If patient's symptoms persist MRI of the bra in would be recommended Abilio ofof the emergency room was notified at 10:12 a.m. March 17, 2024
[2024-03-17 10:34] LABS: Absolute Eosinophils 0.2 K/uL (0-0.5); Absolute Lymphocytes (CBC) 0.7 K/uL (0.7-4.9); Absolute Monocytes 0.4 K/uL (0.1-1.3); Eosinophils % 4.4 % (0-4.4); Hematocrit 43.9 % (39.6-49.0); Hemoglobin 14.5 g/dL (13.6-17.9); Lymphocytes % 16.3 % (15.3-44.8); MCH 32.5 pg (27.0-35.0); MCHC 32.9 g/dL (32.0-36.0); MCV 98.6 fL (80-100); MPV 8.9 fL (7.6-11.3); Monocytes % 9.5 % (3.3-12.3); Neutrophils % 68.8 % (41.7-73.7); Platelets 124 thou/uL (152-406); RBC Red Blood Cell Count 4.46 M/uL (4.33-5.43); Red Cell Distribution Width 14.2 % (12.1-15.2)
[2024-03-17] MEDS ORDERED: FOLIC ACID 5 MG/ML VIAL ONE (10:39)
[2024-03-17] MEDS ORDERED: ACETYLCYST 6,000 MG/30 ML VIAL ONE (10:40)
[2024-03-17] MEDS ORDERED: NA CHLORIDE 0.9% 1,000 ML ONE (10:40)
--- NOTE | 2024-03-17 10:46 | RAD REPORT ---
EXAM DESCRIPTION: CTHead angio03/17/2024 10:22 am CLINICAL HISTORY: Blurred vision COMPARISON: none TECHNIQUE: 75 cc Isovue [address] angiogram of the head was obtained. 3D MIPS reconstruction performed. All CT scans are performed using dose optimization technique as appropriate and may include automated exposure control or mA/KV adjustment according to patient size. FINDINGS: The basilar, anterior cerebral, middle cerebral and posterior cerebral arteries do not dem onstrate a significant stenosis Mild calcified plaque distal internal carotid arteries origin right posterior cerebral artery An aneurysm is not seen No large vessel occlusion IMPRESSION: No significant abnormality is displayed
[2024-03-17 10:47] LABS: Protime INR 1.19
--- NOTE | 2024-03-17 10:47 | RAD REPORT ---
EXAM DESCRIPTION: Xi Angio03/17/2024 10:23 am CLINICAL HISTORY: Blurred vision COMPARISON: None TECHNIQUE: 75 cc Isovue [address] angiogram of the neck was obtained. 3D MIPS reconstruction performed. All CT scans are performed using dose optimization technique as appropriate and may include automated exposure control or mA/KV adjustment according to patient size. FINDINGS: Visualized aortic arch and great vessels demonstrate no significant abnormality Marked calcified plaque proximal left internal carotid artery Mild plaque within the remainder of the common carotid, internal carotid and external carotid arterie s Vertebral arteries unremarkable No dissection is seen. Nascet crieria Mild stenosis 0 to 49 % Moderate stenosis 50-69% Severe stenosis 70-99% IMPRESSION: Marked plaque proximal left internal carotid artery resulting in an approximately 80% stenosis
[2024-03-17 11:00] LABS: Albumin 2.8 g/dL (3.4-5.0); Albumin/Globulin Ratio 0.8 (1.1-1.8); Anion Gap 8.3 mEq/L (5.0-15.0); Bilirubin Direct 0.3 mg/dL (0-0.2); Bilirubin Indirect, Calculated 0.5 mg/dL (0.2-0.8); Bilirubin Total 0.8 mg/dL (0.2-1.0); Globulin 3.7 g/dL (2.3-3.5); Protein, Total 6.5 g/dL (6.4-8.2); Troponin High Sensitivity 11.3 pg/mL (<58.9)
[2024-03-17 11:01] LABS: Magnesium 1.9 mg/dL (1.6-2.4); Potassium 4.3 mEq/L (3.5-5.1)
--- NOTE | 2024-03-17 11:13 | RAD REPORT ---
EXAM DESCRIPTION: Hannah Single View03/17/2024 10:55 am CLINICAL HISTORY: Cough COMPARISON: 2020 FINDINGS: The lungs appear clear of acute infiltrate. The heart is normal size IMPRESSION: No acute abnormalities displayed
[2024-03-17] MEDS ORDERED: CLOPIDOGREL 75 MG TABLET ONE (11:46)
[2024-03-17] MEDS ORDERED: ASPIRIN 81 MG CHEWABLE TABLET ONE (11:46)
[2024-03-17 12:08] LABS: Specific Gravity 1.019 (1.005-1.030); Urine Bilirubin NEGATIVE (Negative); Urine Blood Negative (Negative); Urine Clarity Clear (Clear); Urine Color Colorless (Yellow); Urine Glucose 4+ (Over) (Negative); Urine Ketones NEGATIVE (Negative); Urine Microscopic Reflex YN NO UMIC; Urine Nitrite NEGATIVE (Negative); Urine Protein NEGATIVE (Negative); Urine Urobilinogen Normal (Normal)
--- NOTE | 2024-03-17 12:32 | ER ---
Nurse's Notes [facility] Name: Olga Gates Age: 63 yrs Sex: Male : 1960 Arrival Date: 03/17/2024 Time: 09:47 Bed 14 Private MD: Diagnosis: Other visual disturbances-left eye , inferior field, left eye;Cerebral infarction, unspecified Presentation: 03/17 10:01 Chief complaint: Patient states: Woke this morning w/ partial vision loss in L eye, no ph other deficits, went to bed at 10pm last night. Coronavirus screen: Vaccine status: Patient reports receiving the 2nd dose of the covid vaccine. Ebola Screen: No symptoms or risks identified at this time. Initial Sepsis Screen: Does the patient meet any 2 criteria? No. Patient's initial sepsis screen is negative. Does the patient have a suspected source of infection? No. Patient's initial sepsis screen is negative. Risk Assessment: Do you want to hurt yourself or someone else? Patient reports no desire to harm self or others. Onset of symptoms was March 17, 2024. 10:01 Method Of Arrival: Ambulatory ph 10:01 Acuity: LUCAS 2 ph Triage Assessment: 16:15 General: Behavior is calm, cooperative, appropriate for age. cp4 Historical: - Allergies: 10:03 PENICILLINS; ph 10:03 Sulfa (Sulfonamide Antibiotics); ph - PMHx: 10:03 Diabetes - NIDDM; GERD; Hypertension; High Cholesterol; ph - PSHx: 10:03 Appendectomy; heart stent; ph - Immunization history:: Adult Immunizations up to date. - Infectious Disease History:: Denies. CDIFF, C. Auris, ESBL, MRSA (w/in 1 year), VRE (w/in 1 year), TB, . - Family history:: not pertinent. - Social history:: Smoking status: Patient denies any tobacco usage or history of. Screenin:10 [facility] ED Fall Risk Assessment (Adult) History of falling in the last 3 months, cp4 including since admission No falls in past 3 months (0 pts). [facility] ED Fall Risk Assessment (Adult) History of falling in the last 3 months, including since admission Confusion or Disorientation No (0 pts) Intoxicated or Sedated No (0 pts) Impaired Gait No (0 pts) Mobility Assist Device Used No (0 pt) Altered Elimination No (0 pt) Score/Fall Risk Level 0 - 2 = Low Risk Oriented to surroundings, Maintained a safe environment, Assessed \T\ reinforced patient's understanding of fall precautions, Hourly rounding (assess needs \T\ fall precautionary measures) done. Abuse screen: Denies threats or abuse. Nutritional screening: No deficits noted. Tuberculosis screening: No symptoms or risk factors identified. 10:40 VAN Screening: Arm Drift: Patient shows no arm weakness. Visual Disturbance: Field Cut: es3 Aphasia: No aphasia noted. Neglect: No neglect noted. Sherman Swallow Protocol Brief Cognitive Screen What is your name? Normal, Where are you right now? Normal, What year is it? Normal. Oral Mechanism Examination Facial Symmetry: Normal, Motion: Normal, Lip Closure: Normal, Oral Mechanism Result: Normal. 3 oz Water Swallow Challenge: Pt able to drink all water without stopping, coughing, choking or throat clearing: Yes Result: PASS MD Notified: Bennie Wu MD. Assessment: 10:10 General: Appears uncomfortable. cp4 10:10 Pain: Denies pain. Neuro: Cavazos Agitation-Sedation Scale (RASS): 0 - Alert and Calm cp4 Level of Consciousness is awake, alert, obeys commands, Oriented to person, place, time, situation, Molder Setter are equal bilaterally Moves all extremities. Full function Gait is steady, Speech is normal, Facial symmetry appears normal, Pupils are PERRLA, Intact Reports loss of vision in left eye. 15:07 Reassessment: No changes from previously documented assessment. cp4 Vital Signs: 10:01 BP 118 / 66; Pulse 61; Resp 18; Temp 97.9; Pulse Ox 96% on R/A; Weight 95.25 kg; Height ph 5 ft. 11 in. ; 11:00 BP 133 / 79; Pulse 61; Resp 18; Pulse Ox 98% ; cp4 11:30 BP 119 / 69; Pulse 63; Resp 18; Pulse Ox 97% ; cp4 12:30 BP 115 / 66; Pulse 82; Resp 18; Pulse Ox 95% ; cp4 13:00 BP 117 / 72; Pulse 61; Resp 18; Pulse Ox 95% ; cp4 13:30 BP 152 / 75; Pulse 67; Resp 18; Pulse Ox 95% ; cp4 14:00 BP 137 / 78; Pulse 64; Resp 18; Pulse Ox 96% ; cp4 15:30 BP 121 / 77; Pulse 64; Resp 18; Pulse Ox 100% ; cp4 10:01 Body Mass Index 29.29 (95.25 kg, 180.34 cm) ph NIH Stroke Scale Scores: 10:40 NIHSS Score: 1 es3 ED Course: 09:52 Patient arrived in ED. mr 09:59 Bennie Wu MD is Attending Physician. [facility] 10:02 Tiffany Padilla is Primary Nurse. cp4 10:03 Triage completed. ph 10:03 Arm band placed on Patient placed in an exam room. ph 10:10 Placed in gown. Bed in low position. Call light in reach. Side rails up X2. cp4 10:10 Initial lab(s) drawn, by ED staff, sent to lab. EKG done, by ED staff, reviewed by cp4 Bennie Wu MD. Inserted saline lock: 22 gauge in left antecubital area, using aseptic technique. Blood collected. 10:17 CT Stroke Brain w/o Contrast In Process Unspecified. EDMS 10:24 CT Head Angio In Process Unspecified. EDMS 10:24 CT Neck Angio In Process Unspecified. EDMS 10:57 XRAY Chest (1 view) In Process Unspecified. EDMS 11:57 Urinalysis w/ reflexes Sent. cp4 15:17 Brain Wo Cont In Process Unspecified. EDMS 16:13 Provided Education on: sttoke. cp4 16:13 No provider procedures requiring assistance completed. Patient transferred, IV remains cp4 in place. Administered Medications: 10:46 Drug: foLIC Acid IVPB 1 mg IVPB once Route: IVPB; Site: left antecubital; cp4 10:47 Follow up: Response: No adverse reaction; IV Status: Completed infusion cp4 10:46 Drug: NS 0.9% IV 1000 ml IV at 1 bolus Per protocol; 1000 mL bolus Route: IV; Rate: 1 cp4 bolus; Site: left antecubital; 12:30 Follow up: Response: No adverse reaction; IV Status: Completed infusion cp4 10:46 Drug: Mucomyst - Acetylcysteine PO 600 mg PO once Route: PO; cp4 15:07 Follow up: Response: No adverse reaction cp4 11:57 Drug: Aspirin PO Chewable Tablet 162 mg PO once Route: PO; cp4 15:07 Follow up: Response: No adverse reaction cp4 11:57 Drug: Clopidogrel PO 75 mg PO once Route: PO; cp4 15:07 Follow up: Response: No adverse reaction cp4 Medication: 10:10 VIS not applicable for this client. cp4 Outcome: 12:31 ER care complete, transfer ordered by MD. rodriguez 16:13 Transferred by ground EMS to [facility] Transfer form completed. cp4 X-rays sent w/ patient. 16:13 Condition: stable 16:13 Instructed on the need for transfer, Demonstrated understanding of instructions, follow-up care, 16:15 Patient left the ED. cp4 NIH Stroke Scale - NIH Stroke Score Date: 03/17/2024 Time: 10:40 Total Score = 1 10. Dysarthria (speech clarity - read or repeat words) - 0(Normal) 11. Extinction and Inattention (visual/tactile/auditory/spatial/personal) - 0(No abnormality) 1a. Level of Consciousness (LOC) - 0(Alert) 1b. Level of Consciousness (LOC) (Month \T\ Age) - 0(Both) 1c. LOC Commands (Open \T\ Closes Eyes/Enterprise Sales Person) - 0(Both) 2. Best Gaze (Lateral Gaze Paresis) - 0(Normal) 3. Visual Field Loss - 1(Partial hemianopia) 4. Facial Palsy - 0(Normal) 5a. Left Arm: Motor (10-second hold) - 0(No drift) 5b. Right Arm: Motor (10-second hold) - 0(No drift) 6a. Left Leg: Motor (5-second hold - always test supine) - 0(No drift) 6b. Right Leg: Motor (5-second hold - always test supine) - 0(No drift) 7. Limb Ataxia (finger/nose \T\ heel/andres - test with eyes open) - 0(Absent) 8. Sensory Loss (pinprick arms/legs/face) - 0(Normal) 9. Best Language: Aphasia (description/naming/reading) - 0(No aphasia) Initials: es3 Signatures: Dispatcher [employer] EDMS Bennie Wu MD MD cha Rivera, Margot, Reg Reg Fadumo Troy RN RN ph Potter, Christina cp4 Nataly Hays RN RN es3
--- NOTE | 2024-03-17 12:32 | EDPHYS ---
Physician Documentation [facility] Name: Olga Gates Age: 63 yrs Sex: Male : 1960 Arrival Date: 03/17/2024 Time: 09:47 Bed 14 Private MD: ED Physician Bennie Wu HPI: 03/17 12:26 This 63 yrs old Male presents to ER via Ambulatory with complaints of Loss Of michael Vision. 12:26 The patient is experiencing decreased vision. Onset: The symptoms/episode michael began/occurred this morning. Duration: the symptoms are continuous. Aggravated by nothing. Alleviated by nothing. Associated signs and symptoms: Pertinent positives: None. Pertinent negatives: None. Patient wears glasses. Severity of symptoms: At their worst the symptoms were moderate in the emergency department the symptoms are unchanged. The patient has not experienced similar symptoms in the past. Historical: - Allergies: 10:03 PENICILLINS; ph 10:03 Sulfa (Sulfonamide Antibiotics); ph - PMHx: 10:03 Diabetes - NIDDM; GERD; Hypertension; High Cholesterol; ph - PSHx: 10:03 Appendectomy; heart stent; ph - Immunization history:: Adult Immunizations up to date. - Infectious Disease History:: Denies. CDIFF, C. Auris, ESBL, MRSA (w/in 1 year), VRE (w/in 1 year), TB, . - Family history:: not pertinent. - Social history:: Smoking status: Patient denies any tobacco usage or history of. ROS: 12:26 Constitutional: Negative for fever, chills, and weight loss, ENT: Negative for injury, michael pain, and discharge, Neck: Negative for injury, pain, and swelling, Cardiovascular: Negative for chest pain, palpitations, and edema, Respiratory: Negative for shortness of breath, cough, wheezing, and pleuritic chest pain, Abdomen/GI: Negative for abdominal pain, nausea, vomiting, diarrhea, and constipation, Back: Negative for injury and pain, : Negative for injury, bleeding, discharge, and swelling, MS/Extremity: Negative for injury and deformity, Skin: Negative for injury, rash, and discoloration, Neuro: Negative for headache, weakness, numbness, tingling, and seizure, Psych: Negative for depression, anxiety, suicide ideation, homicidal ideation, and hallucinations, Allergy/Immunology: Negative for hives, rash, and allergies, Endocrine: Negative for neck swelling, polydipsia, polyuria, polyphagia, and marked weight changes, Hematologic/Lymphatic: Negative for swollen nodes, abnormal bleeding, and unusual bruising, 12:26 Eyes: Positive for vision loss, visual disturbance, Exam: 12:26 Constitutional: This is a well developed, well nourished patient who is awake, alert, michael and in no acute distress. Head/Face: Normocephalic, atraumatic. ENT: Nares patent. No nasal discharge, no septal abnormalities noted. Tympanic membranes are normal and external auditory canals are clear. Oropharynx with no redness, swelling, or masses, exudates, or evidence of obstruction, uvula midline. Mucous membranes moist. Neck: Trachea midline, no thyromegaly or masses palpated, and no cervical lymphadenopathy. Supple, full range of motion without nuchal rigidity, or vertebral point tenderness. No Meningismus. Chest/axilla: Normal chest wall appearance and motion. Nontender with no deformity. No lesions are appreciated. Cardiovascular: Regular rate and rhythm with a normal S1 and S2. No gallops, murmurs, or rubs. Normal PMI, no JVD. No pulse deficits. Respiratory: Lungs have equal breath sounds bilaterally, clear to auscultation and percussion. No rales, rhonchi or wheezes noted. No increased work of breathing, no retractions or nasal flaring. Abdomen/GI: Soft, non-tender, with normal bowel sounds. No distension or tympany. No guarding or rebound. No evidence of tenderness throughout. Back: No spinal tenderness. No costovertebral tenderness. Full range of motion. Male : Normal genitalia with no discharge or lesions. Skin: Warm, dry with normal turgor. Normal color with no rashes, no lesions, and no evidence of cellulitis. MS/ Extremity: Pulses equal, no cyanosis. Neurovascular intact. Full, normal range of motion. Neuro: Awake and alert, GCS 15, oriented to person, place, time, and situation. Cranial nerves II-XII grossly intact. Motor strength 5/5 in all extremities. Sensory grossly intact. Cerebellar exam normal. Normal gait. Psych: Awake, alert, with orientation to person, place and time. Behavior, mood, and affect are within normal limits. 12:26 Eyes: Periorbital structures: appear normal, Pupils: no acute changes, equal, round, and reactive to light and accomodation, Extraocular movements: no acute changes, Conjunctiva: normal, Corneas: are normal, Sclera: no appreciated abnormality, Anterior chamber: normal, Lids and lashes: appear normal, no acute changes, funduscopic exam reveals no obvious abnormalities, Visual walsh: bitemporal hemianopia noted, Nystagmus: is not appreciated, 12:34 ECG was reviewed by the Attending Physician. [facility] Vital Signs: 10:01 BP 118 / 66; Pulse 61; Resp 18; Temp 97.9; Pulse Ox 96% on R/A; Weight 95.25 kg; Height ph 5 ft. 11 in. ; 11:00 BP 133 / 79; Pulse 61; Resp 18; Pulse Ox 98% ; cp4 11:30 BP 119 / 69; Pulse 63; Resp 18; Pulse Ox 97% ; cp4 12:30 BP 115 / 66; Pulse 82; Resp 18; Pulse Ox 95% ; cp4 13:00 BP 117 / 72; Pulse 61; Resp 18; Pulse Ox 95% ; cp4 13:30 BP 152 / 75; Pulse 67; Resp 18; Pulse Ox 95% ; cp4 14:00 BP 137 / 78; Pulse 64; Resp 18; Pulse Ox 96% ; cp4 15:30 BP 121 / 77; Pulse 64; Resp 18; Pulse Ox 100% ; cp4 10:01 Body Mass Index 29.29 (95.25 kg, 180.34 cm) ph NIH Stroke Scale Scores: 10:40 NIHSS Score: 1 es3 MDM: 10:06 Patient medically screened. [facility] 12:32 Differential diagnosis: Corneal abrasion of Corneal ulcer of Foreign body in Acute michael iritis of Acute glaucoma in Ultraviolet keratitis in. Data reviewed: vital signs, nurses notes, EMS record, lab test result(s), EKG, radiologic studies, CT scan, MRI. Consideration of Admission/Observation Escalation of care including admission/observation considered. I considered the following discharge prescriptions or medication management in the emergency department Medications were administered in the Emergency Department. See MAR. Independent interpretation of the following test(s) in the Emergency Department EKG: See my EKG interpretation above. Test considered but Not performed: Ultrasound no carotid usg. Historians other than the Patient: Spouse/Significant Other: well informed. Care significantly affected by the following chronic conditions: Diabetes, Hypertension, high cholesterol , gerd. 03/17 10:00 Order name: Basic Metabolic Panel; Complete Time: 11:21 [facility] 03/17 10:00 Order name: CBC with Diff; Complete Time: 11: [facility] 03/17 10:00 Order name: LFT's; Complete Time: 11: [facility] 03/17 10:00 Order name: Magnesium; Complete Time: 11: [facility] 03/17 10:00 Order name: NT PRO-BNP; Complete Time: 11: [facility] 03/17 10:00 Order name: PT-INR; Complete Time: 11: [facility] 03/17 10:00 Order name: Troponin HS; Complete Time: : [facility] 03/17 10:00 Order name: Urinalysis w/ reflexes; Complete Time: 12:32 [facility] 03/17 10:36 Order name: CREATININE WHOLE BLOOD; Complete Time: 11:21 [facility] 03/17 10:45 Order name: Glucose, Ancillary Testing; Complete Time: : [facility] 03/17 10:00 Order name: XRAY Chest (1 view); Complete Time: 11: [facility] 03/17 10:00 Order name: CT Stroke Brain w/o Contrast; Complete Time: 11: [facility] 03/17 10:00 Order name: CT Head Angio; Complete Time: 11: [facility] 03/17 10:00 Order name: CT Neck Angio; Complete Time: 11:21 [facility] 03/17 11:35 Order name: Brain Wo Cont [facility] 03/17 10:00 Order name: EKG; Complete Time: 10:01 [facility] 03/17 10:00 Order name: Cardiac monitoring; Complete Time: 10:18 [facility] 03/17 10:00 Order name: EKG - Nurse/Tech; Complete Time: 10:36 [facility] 03/17 10:00 Order name: IV Saline Lock; Complete Time: 10:36 [facility] 03/17 10:00 Order name: Labs collected and sent; Complete Time: 10:29 [facility] 03/17 10:00 Order name: O2 Per Protocol; Complete Time: 10:18 [facility] 03/17 10:00 Order name: O2 Sat Monitoring; Complete Time: 10:18 [facility] EC:34 Rate is 62 beats/min. IL interval is normal. QRS interval is normal. QT interval is michael normal. No Q waves. T waves are Normal. No ST changes noted. Clinical impression: Normal ECG and No evidence of ischemia. Interpreted by me. Reviewed by me. Administered Medications: 10:46 Drug: foLIC Acid IVPB 1 mg IVPB once Route: IVPB; Site: left antecubital; cp4 10:47 Follow up: Response: No adverse reaction; IV Status: Completed infusion cp4 10:46 Drug: NS 0.9% IV 1000 ml IV at 1 bolus Per protocol; 1000 mL bolus Route: IV; Rate: 1 cp4 bolus; Site: left antecubital; 12:30 Follow up: Response: No adverse reaction; IV Status: Completed infusion cp4 10:46 Drug: Mucomyst - Acetylcysteine PO 600 mg PO once Route: PO; cp4 15:07 Follow up: Response: No adverse reaction cp4 11:57 Drug: Aspirin PO Chewable Tablet 162 mg PO once Route: PO; cp4 15:07 Follow up: Response: No adverse reaction cp4 11:57 Drug: Clopidogrel PO 75 mg PO once Route: PO; cp4 15:07 Follow up: Response: No adverse reaction cp4 Disposition Summary: 03/17/24 12:31 Transfer Ordered Notes: Transfer Location: Other Acute Care Facility michael Reason: Higher level of care michael Condition: Stable michael Problem: new michael Symptoms: have improved michael Accepting Physician: to yoav(03/17/24 16:15) cp4 Diagnosis - Other visual disturbances - left eye , inferior field, left eye michael - Cerebral infarction, unspecified michael Forms: - Medication Reconciliation Form michael - SBAR form michael NIH Stroke Scale - NIH Stroke Score Date: 03/17/2024 Time: 10:40 Total Score = 1 10. Dysarthria (speech clarity - read or repeat words) - 0(Normal) 11. Extinction and Inattention (visual/tactile/auditory/spatial/personal) - 0(No abnormality) 1a. Level of Consciousness (LOC) - 0(Alert) 1b. Level of Consciousness (LOC) (Month \T\ Age) - 0(Both) 1c. LOC Commands (Open \T\ Closes Eyes/Geography Teacher) - 0(Both) 2. Best Gaze (Lateral Gaze Paresis) - 0(Normal) 3. Visual Field Loss - 1(Partial hemianopia) 4. Facial Palsy - 0(Normal) 5a. Left Arm: Motor (10-second hold) - 0(No drift) 5b. Right Arm: Motor (10-second hold) - 0(No drift) 6a. Left Leg: Motor (5-second hold - always test supine) - 0(No drift) 6b. Right Leg: Motor (5-second hold - always test supine) - 0(No drift) 7. Limb Ataxia (finger/nose \T\ heel/andres - test with eyes open) - 0(Absent) 8. Sensory Loss (pinprick arms/legs/face) - 0(Normal) 9. Best Language: Aphasia (description/naming/reading) - 0(No aphasia) Initials: es3 Signatures: Dispatcher [employer] EDMS Bennie Wu MD MD cha Hall, Patricia, RN RN ph Tiffany Padilla cp4 Corrections: (The following items were deleted from the chart) 10:01 10:01 BASIC METABOLIC PANEL+C.LAB.BRZ ordered. EDMS EDMS 10:01 10:01 CBC+H.LAB.BRZ ordered. EDMS EDMS 10:01 10:01 HEPATIC FUNCTION+C.LAB.BRZ ordered. EDMS EDMS 10:01 10:01 MAGNESIUM+C.LAB.BRZ ordered. EDMS EDMS 10:01 10:01 PROBNP+C.LAB.BRZ ordered. EDMS EDMS 10:01 10:01 PROTIME (+INR)+COAG.LAB.BRZ ordered. EDMS EDMS 10:01 10:01 Troponin High Sensitivity+C.LAB.BRZ ordered. EDMS EDMS 10:01 10:01 Urinalysis+U.LAB.BRZ ordered. EDMS EDMS 11:35 11:22 MR STROKE PROTOCOL+MRI.RAD.BRZ ordered. EDMS EDMS 12:31 12:31 to [facility] michael michael 16:15 12:31 to [facility] michael cp4
--- NOTE | 2024-03-17 16:29 | RAD REPORT ---
EXAM DESCRIPTION: MRI - Brain Wo Cont - 03/17/2024 3:16 pm CLINICAL HISTORY: STROKE ALERT COMPARISON: Head CT and CT angiogram of the same day TECHNIQUE: Multiplanar multisequence MRI of the brain performed without IV contrast. FINDINGS: No evidence of acute infarct or other diffusion signal abnormality. No evidence of acute intracranial hemorrhage or abnormal extra-axial fluid collections. Mild diffuse parenchymal volume loss. Ventricular caliber otherwise within normal for age. Midline st ructures are unremarkable. Scattered subcortical and deep white matter T2/FLAIR hyperintensities, nonspecific, but suggestive of chronic small vessel ischemic changes. No mass effect or midline shift. Major vascular flow voids are preserved. Mastoid air cells and paranasal sinuses are clear. IMPRESSION: No acute intracranial process. No evidence of ventriculomegaly or mass effect.
[2024-03-17 17:38] VITALS: BP 121/77; TEMP 97.9; O2SAT 100
--- NOTE | 2024-03-21 13:33 | EKG ---
Test Date: 2024-03-17 Test Time: 10:30:56 [employer] Officer: KIMMY MEASUREMENT RESULTS: Intervals: Rate: 62 HI: 150 QRSD: 80 QT: 414 QTc: 420 [place]: P: 78 HI: 150 QRS: 63 T: 74 INTERPRETIVE STATEMENTS: Normal sinus rhythm Normal ECG Compared to ECG 01/20/2021 17:54:25 Sinus bradycardia no longer present Electronically Signed On 03-21-24 13:20:41 CDT by Henrry Aguirre
== END 2024-03-17 16:15 ==
LOC: ER 09:47
DX: I63.9 Cerebral infarction, unspecified (principal); I10 Essential (primary) hypertension; R29.701 NIHSS score 1; E11.9 Type 2 diabetes mellitus without complications; Z88.0 Allergy status to penicillin; Z88.2 Allergy status to sulfonamides
CPT/HCPCS: 96361; 93005; 85025; 80048; 36415; 83735; 85610; 82565; 82947; 80076; 81003; 84484; 83880; 70496; 70498; 70450; 71045; 70551; 96374; 99285; Q9967; J7608; J7030